=== PATIENT | female | born 1945 ===

== ENCOUNTER 2022-03-29 06:06 | Outpatient (REF) | payer MEDICARE, SELFPAY ==
[2022-03-29 11:13] LABS: MANUAL DIFF FLAG NO
[2022-03-29 11:24] LABS: Appearance Urine HAZY; Basophils Percent Auto 0.4 % (0-2); Color Urine STRAW; Eosinophils Absolute Auto 0.1 X10*3/uL (0.0-0.4); Eosinophils Percent Auto 1.1 % (0-4); Glucose Urine UA NEG (NEG); Hematocrit 41.5 % (37.0-47.0); Hemoglobin 13.5 g/dl (12.0-16.0); Imm Gran Abs Auto 0.02 X10*3/uL (0.00-0.03); Imm Gran Pct Auto 0.3 % (0.0-0.4); Leukocyte Esterase Urine 1+ (NEG); Lymphocytes Absolute Auto 1.8 X10*3/uL (1.2-4.9); Lymphocytes Percent Auto 25.3 % (20-40); Mean Corpuscular HGB Conc 32.5 g/dl (31.0-35.0); Mean Corpuscular Hemoglobin 28.8 pg (27.0-33.0); Mean Corpuscular Volume 88.5 fL (80.0-98.0); Mean Platelet Volume 10.4 fL (9.4-12.3); Monocytes Absolute Auto 0.7 X10*3/uL (0.1-1.2); Monocytes Percent Auto 10.5 % (2-11); Neutrophils Absolute Auto 4.4 x10*3/uL (2.0-8.3); Neutrophils Percent Auto 62.4 % (45-73); Nitrite Urine NEG (NEG); PH 5.5 (5.0-8.0); Platelet Count 283 X10*3/uL (160-400); Red Blood Count 4.69 X10*6/uL (4.20-5.50); Red Cell Distribution Width 14.1 % (11.0-16.0); Specific Gravity - Urine <= 1.005 (1.005-1.025); UACC Culture Trigger YES; Urine Blood NEG (NEG); Urine Ketones NEG (NEG); Urine Protein NEG (NEG-TRACE)
[2022-03-29 11:33] LABS: Bacteria Urine TRACE /LPF; RBC Urine 0-2 /HPF (0); Squamous Epithelial Cell Urine 2+ /LPF
[2022-03-29 11:38] LABS: Alanine Aminotransferase 13 U/L (0-31); Albumin Level 4.8 g/dL (3.5-5.0); Alkaline Phosphatase 64 U/L (39-117); Anion Gap 14 (12-20); Aspartate Amino Transferase 20 U/L (5-31); Blood Urea Nitrogen 15 mg/dL (9-16); Calcium 9.7 mg/dL (8.4-10.2); Carbon Dioxide 27 mmol/L (22-29); Chloride 101 mmol/L (96-108); Cholesterol 306 mg/dL; Estimated Glomerular Filt Rate > 60; Glucose Fasting 102 mg/dL (60-99); HDL Cholesterol 87 mg/dL; LDL Cholesterol Calculated 201 mg/dl; Potassium 4.4 mmol/L (3.3-5.1); Sodium 138 mmol/L (135-145); Total Protein 7.3 g/dL (6.5-8.0); Triglycerides 94 mg/dL
[2022-03-29 11:57] LABS: Vitamin B12 320 pg/mL (200-900)
[2022-03-29 11:59] LABS: TSH reflex Free T4 1.12 uIU/mL (0.32-4.0)
[2022-04-03 13:46] LABS: Vitamin D 25-OH, D2 <4 ng/mL; Vitamin D 25-OH, D3 31 ng/mL; Vitamin D 25-OH, Total 31 ng/mL (30-100)
== END 2022-03-29 06:07 | disposition home or self-care (01) ==
LOC: HO.HMGCLDS 06:06
PROVIDERS: PCP Internal Medicine; Visit Provider Internal Medicine
DX: Z00.01 Encounter for general adult medical examination with abnormal findings (principal); K58.2 Mixed irritable bowel syndrome; K64.4 Residual hemorrhoidal skin tags; L30.9 Dermatitis, unspecified; M40.209 Unspecified kyphosis, site unspecified; R03.0 Elevated blood-pressure reading, without diagnosis of hypertension; F17.200 Nicotine dependence, unspecified, uncomplicated; Z78.0 Asymptomatic menopausal state
CPT/HCPCS: 36415; 80053; 80061; 81001; 82306; 82607; 84443; 85025; 87086

== ENCOUNTER 2022-04-27 10:05 | Outpatient (REF) | payer MEDICARE, SELFPAY ==
--- NOTE | ~2022-04-27 | MM_ITS ---
EXAMINATION: BONE DENSITOMETRY CLINICAL INDICATION: Asymptomatic menopausal state. COMPARISON: Baseline BD dated 10/27/2015. TECHNIQUE: Using a [employer] DXA System (software version: 13.1) manufactured by [employer], dual-energy x-ray absorptiometry was performed of the lumbar spine and left hip. The images are of good technical quality. Summary results are attached. FINDINGS: AP SPINE L1-L4 (excluding L3): The data of L1-L4 has been changed to exclude the L3 vertebral body, because the superior endplate compression at this level may cause overestimation of lumbar spine density. Current: BMD 0.781 g/cm2, Z-score -0.9, T-score -3.2, osteoporosis, 3.0% increase from baseline (<5% change is not significant). Baseline: BMD 0.758 g/cm2. LEFT FEMUR, NECK: Current: BMD 0.680 g/cm2, Z-score -0.2, T-score -2.6, osteoporosis. Baseline: BMD 0.652 g/cm2. LEFT FEMUR, TOTAL: Current: BMD 0.714 g/cm2, Z-score -0.1, T-score -2.3, osteopenia, 0.1% increase from baseline (<5% change is not significant). Baseline: BMD 0.713 g/cm2. IDENTIFIED RISK FACTORS: Early menopause, height loss, history of fracture (adult), hysterectomy, left oophorectomy, tobacco use (current smoker), secondary osteoporosis. HISTORY OF FRACTURE: Spine. MEDICATIONS: Vitamin D. MM/XR DEXA axial skeleton IMPRESSION: 1. DIAGNOSIS: Osteoporosis based on the lowest T-score value of -3.2 in the lumbar spine applying World Health Organization criteria. 2. 10-YEAR FRACTURE RISK PREDICTION, FRAX: According to the guidelines, FRAX calculation should only be performed on patients in the osteopenia bone density category. Therefore, FRAX was not performed on this patient. 3. Treatment Recommendations: NOF guidelines recommend consideration for treatment in postmenopausal women and men age 50 and older presenting with the following: -A hip or vertebral (clinical or morphometric) fracture. -T-score less than or equal to -2.5 at the femoral neck or spine after appropriate evaluation to exclude secondary causes. -Low bone mass at the hip or spine and a 10-year fracture probability by FRAX of greater than or equal to 3% for hip fracture or greater than or equal to 20% for major osteoporotic fracture based on the [place] adapted WHO algorithm. 4. Other Recommendations: All treatment decisions require clinical judgment and consideration of individual patient factors, including patient preferences, comorbidities, previous drug use, risk factors not captured in the FRAX model (e.g. frailty, falls, vitamin D deficiency, increased bone turnover, interval significant decline in bone density) and possible under or overestimation of fracture risk by FRAX. Additional medical evaluation for secondary cause of low bone mineral density may be appropriate. FUTURE SCAN RECOMMENDATION: People with diagnosed cases of osteoporosis or at high risk for fracture should have regular bone mineral density tests. For patients eligible for Medicare, routine testing is allowed once every 2 years. The testing frequency can be increased to one year for patients who have rapidly progressing disease, those who are receiving or discontinuing medical therapy to restore bone mass, or have additional risk factors.
== END 2022-04-27 10:06 | disposition home or self-care (01) ==
LOC: HO.MAMMO 10:05
PROVIDERS: PCP Internal Medicine; Visit Provider Internal Medicine
DX: Z13.820 Encounter for screening for osteoporosis (principal); Z78.0 Asymptomatic menopausal state
CPT/HCPCS: 77080

== ENCOUNTER → 2022-05-22 10:34 | Outpatient (BNVA) | payer MEDICARE, SELFPAY | PROVIDERS: PCP Internal Medicine; Visit Provider Internal Medicine Endocrinology, Diabetes & Metabolism | DX: M81.0 Age-related osteoporosis without current pathological fracture (principal) | CPT/HCPCS: 99202 ==

== ENCOUNTER 2022-05-24 06:00 | Outpatient (REF) | payer MEDICARE, SELFPAY ==
[2022-05-24 08:18] LABS: Phosphorus 3.8 mg/dL (2.7-4.5)
[2022-05-24 09:42] LABS: Total Volume 24 Hour Urine 1550 mL
[2022-05-24 10:15] LABS: Creatinine, 24Hr Urine 0.7 G/Day (1.0-2.0); Creatinine, mg/dL 44.35
[2022-05-25 16:52] LABS: Calcium, 24 Hr Urine 59 mg/24 h; Calcium/Creatinine Ratio 84 mg/g creat (30-275)
[2022-05-29 00:32] LABS: Prot Elec - Albumin 4.5 g/dL (3.8-4.8); Prot Elec - Alpha1 0.3 g/dL (0.2-0.3); Prot Elec - Alpha2 0.8 g/dL (0.5-0.9); Prot Elec - Beta 1 0.4 g/dL (0.4-0.6); Prot Elec - Beta 2 0.3 g/dL (0.2-0.5); Prot Elec - Gamma 0.7 g/dL (0.8-1.7); Prot Elec - Total Protein 6.9 g/dL (6.1-8.1)
== END 2022-05-24 06:01 | disposition home or self-care (01) ==
LOC: HO.LAB 06:00
PROVIDERS: PCP Internal Medicine; Visit Provider Internal Medicine Endocrinology, Diabetes & Metabolism
DX: M81.0 Age-related osteoporosis without current pathological fracture (principal)
CPT/HCPCS: 82340; 82570; 84100; 84165

== ENCOUNTER 2022-05-29 10:47 | Outpatient (REF) | payer MEDICARE, SELFPAY | END 2022-05-29 10:48 | disposition home or self-care (01) | LOC: HO.LAB 10:47 | PROVIDERS: PCP Internal Medicine; Visit Provider Internal Medicine Endocrinology, Diabetes & Metabolism | DX: M81.0 Age-related osteoporosis without current pathological fracture (principal) | CPT/HCPCS: 86335 ==

== ENCOUNTER 2022-06-22 08:00 | Outpatient (RCR) | payer MEDICARE, SELFPAY ==
--- NOTE | 2022-05-29 08:58 | MHC.PT.EP ---
[facility] [place] Office [place] Office [place] Office [address] [phone] F: [phone] F: [phone] F: [phone] F: [phone] Physical Therapy Plan of Care Date of Evaluation: Date of Surgery: none Diagnosis: Pain in the R and L shoulder. Assessment: Patient is a 76 year old R handed female who presents with s/s consistent with b/l shoulder pain. She does not work but likes to stay active around the house and in the community. Patient past medical history is unremarkable. Current impairments include pain, posture, ROM, strength, activity tolerance and functional mobility. Functional limitations include decreased ability to perform activities that requires reaching or overhead activities. Patient is motivated with good rehab potential. Skilled PT will address impairments and functional limitations in order to achieve goals. Frequency and Duration: The patient will be seen 2x/week for 5 weeks Short Term Goals: I with HEP -2 weeks ER AROM b/l 60 - 3 weeks Strength 4/5 grossly - 3 weeks Alf Goals: AROM full and pain free - 5 weeks Pain free ADLs - 5 weeks Able to perform 5 minutes of overhead activities without increased pain - 5 weeks Treatment Plan: Modalities to reduce pain, spasms and effusion. Manual therapy to restore motion and function. Therapeutic exercise to improve strength and flexibility. Neuromuscular re-education for posture and balance. Therapeutic activities to return to functional activities of daily living. Electronically signed by: Keshawn Wright PT Please sign and return to therapist. Thank you for your referral.
--- NOTE | 2022-08-08 10:49 | MHC.PT.DC ---
[facility] [place] Office [place] Office [place] Office [address] Andrew Hough [address] [phone] F: [phone] F: [phone] F: [phone] F: [phone] Physical Therapy Discharge Report Diagnosis: Pain in the R and L shoulder. Date of Surgery: none Date of Evaluation: 05/29/22 Date of Discharge: 08/08/22 Treatments to Date: 6 Cancellations to Date: No Shows to Date: Discharge Status: Improved Function Independent with HEP Discharge Summary: Pt elected to continue exclusively with HEP at this time. 06/22/22: pt progressing with skilled PT. R shoulder has been feeling improved overall with less pain with near full AROM. 06/15/22: requires cues to reduce LS/UT compensation. Overall less shoulder and neck discomfort. we will progress as tolerated. 06/12/22: pt responded well after last visit. we did add cuff strength and rows without adverse reactions today. continue to progress as tolerated. 06/08/22: pt progressing well on symptoms. still with limited activity tolerance and weakness in b/l UEs. 06/06/22: pt has been progressing well on HEP since eval. notes discomfort has resolved about 50%. we will continue to address impairments and limitations Patient is a 76 year old R handed female who presents with s/s consistent with b/l shoulder pain. She does not work but likes to stay active around the house and in the community. Patient past medical history is unremarkable. Current impairments include pain, posture, ROM, strength, activity tolerance and functional mobility. Functional limitations include decreased ability to perform activities that requires reaching or overhead activities. Patient is motivated with good rehab potential. Skilled PT will address impairments and functional limitations in order to achieve goals. Electronically signed by: Keshawn Wright, PT Please sign and return to therapist. Thank you for your referral.
== END 2022-08-08 10:50 | disposition home or self-care (01) ==
LOC: HO.PTCHIC 08:00
PROVIDERS: PCP Internal Medicine; Visit Provider Internal Medicine
DX: M25.511 Pain in right shoulder (principal); M25.512 Pain in left shoulder
CPT/HCPCS: 97110; 97140; 97162

== ENCOUNTER 2022-07-30 06:02 | Outpatient (REF) | payer MEDICARE, SELFPAY ==
[2022-07-30 11:46] LABS: Estimated Average Glucose 128 mg/dL; Hemoglobin A1C 148.7139 umol/L; Hemoglobin A1c % 6.1 %
[2022-07-30 11:58] LABS: Alanine Aminotransferase 24 U/L (0-31); Albumin Level 4.8 g/dL (3.5-5.0); Alkaline Phosphatase 76 U/L (39-117); Anion Gap 14 (12-20); Aspartate Amino Transferase 23 U/L (5-31); Bilirubin Total 0.8 mg/dL (0.0-1.0); Blood Urea Nitrogen 25 mg/dL (9-16); Calcium 9.8 mg/dL (8.4-10.2); Carbon Dioxide 29 mmol/L (22-29); Chloride 102 mmol/L (96-108); Cholesterol 267 mg/dL; Estimated Glomerular Filt Rate > 60; Glucose Fasting 112 mg/dL (60-99); HDL Cholesterol 93 mg/dL; LDL Cholesterol Calculated 153 mg/dl; Potassium 4.5 mmol/L (3.3-5.1); Sodium 140 mmol/L (135-145); Total Protein 7.1 g/dL (6.5-8.0); Triglycerides 105 mg/dL
== END 2022-07-30 06:03 | disposition home or self-care (01) ==
LOC: HO.HMGCLDS 06:02
PROVIDERS: PCP Internal Medicine; Visit Provider Internal Medicine
DX: E78.9 Disorder of lipoprotein metabolism, unspecified (principal); R73.03 Prediabetes; R03.0 Elevated blood-pressure reading, without diagnosis of hypertension; K64.4 Residual hemorrhoidal skin tags; K58.2 Mixed irritable bowel syndrome; F17.200 Nicotine dependence, unspecified, uncomplicated
CPT/HCPCS: 36415; 80053; 80061; 83036

== ENCOUNTER 2022-08-02 09:11 | Outpatient (REF) | payer MEDICARE, SELFPAY ==
[2022-08-02 11:38] LABS: Appearance Urine Clear; Color Urine Yellow; Glucose Urine UA Negative (Negative); Leukocyte Esterase Urine Trace (Negative); Nitrite Urine Negative (Negative); PH 5.5 (5.0-9.0); UMIC TRIGGER UACC YES; Urine Blood Negative (Negative); Urine Ketones Negative (Negative); Urine Protein Negative (Neg-Trace)
[2022-08-02 11:44] LABS: Bacteria Urine None Seen (None Seen); Hyaline Casts Urine 0-2 /LPF (0-2); RBC Urine 0-2 /HPF (0-2); Squamous Epithelial Cell Urine 0-2 /HPF (0-2); WBC Urine 0-5 /HPF (0-5)
== END 2022-08-02 09:12 | disposition home or self-care (01) ==
LOC: HO.HMGCLDS 09:11
PROVIDERS: PCP Internal Medicine; Visit Provider Internal Medicine
DX: R35.0 Frequency of micturition (principal)
CPT/HCPCS: 81001

== ENCOUNTER 2022-09-12 08:52 | Outpatient (REF) | payer MEDICARE, SELFPAY ==
--- NOTE | ~2022-09-12 | XR_ITS ---
EXAMINATION: XR HIP, RIGHT CLINICAL INFORMATION: Right hip osteoarthritis COMPARISON: 11/03/2014 pelvis TECHNIQUE: Single view pelvis and Two views of the right hip. FINDINGS: Mild degenerative changes are present in both hips, left greater than right. Findings are unchanged when compared to 11/03/2014. There is supra acetabular sclerosis and some mild osteophyte formation. No fractures. XR/XR hip RT w PEL1V IMPRESSION: Mild degenerative changes both hips, left greater than right stable when compared to 2014.
== END 2022-09-12 08:53 | disposition home or self-care (01) ==
LOC: HO.HMGCX 08:52
PROVIDERS: PCP Internal Medicine; Visit Provider Internal Medicine
DX: M16.11 Unilateral primary osteoarthritis, right hip (principal)
CPT/HCPCS: 73502

== ENCOUNTER 2022-09-19 09:00 | Outpatient (REF) | payer MEDICARE, SELFPAY ==
[2022-09-19 12:26] LABS: Vitamin B12 838 pg/mL (200-900)
[2022-09-19 12:33] LABS: Ferritin 112 ng/mL (10-250)
== END 2022-09-19 09:01 | disposition home or self-care (01) ==
LOC: HO.HMGCLDS 09:00
PROVIDERS: PCP Internal Medicine; Visit Provider Internal Medicine
DX: R53.83 Other fatigue (principal)
CPT/HCPCS: 36415; 82607; 82728

== ENCOUNTER 2022-10-25 14:53 | Outpatient (REF) | payer MEDICARE, SELFPAY ==
[2022-10-25 17:26] LABS: TSH reflex Free T4 1.03 uIU/mL (0.32-4.0)
== END 2022-10-25 14:54 | disposition home or self-care (01) ==
LOC: HO.HMGCLDS 14:53
PROVIDERS: PCP Internal Medicine; Visit Provider Internal Medicine
DX: L65.9 Nonscarring hair loss, unspecified (principal)
CPT/HCPCS: 36415; 84443

== ENCOUNTER 2022-12-24 06:07 | Outpatient (REF) | payer MEDICARE, SELFPAY ==
[2022-12-24 12:47] LABS: Estimated Average Glucose 123 mg/dL; Hemoglobin A1C 148.9475 umol/L; Hemoglobin A1c % 5.9 %
[2022-12-24 13:08] LABS: Alanine Aminotransferase 18 U/L (0-31); Albumin Level 4.4 g/dL (3.5-5.0); Alkaline Phosphatase 64 U/L (39-117); Anion Gap 16 (12-20); Aspartate Amino Transferase 19 U/L (5-31); Bilirubin Total 0.8 mg/dL (0.0-1.0); Blood Urea Nitrogen 24 mg/dL (9-16); Calcium 9.7 mg/dL (8.4-10.2); Carbon Dioxide 26 mmol/L (22-29); Chloride 104 mmol/L (96-108); Cholesterol 258 mg/dL; Estimated Glomerular Filt Rate 56; Glucose Fasting 107 mg/dL (60-99); HDL Cholesterol 80 mg/dL; LDL Cholesterol Calculated 162 mg/dl; Potassium 4.9 mmol/L (3.3-5.1); Sodium 141 mmol/L (135-145); Total Protein 6.8 g/dL (6.5-8.0); Triglycerides 80 mg/dL
== END 2022-12-24 06:08 | disposition home or self-care (01) ==
LOC: HO.HMGCLDS 06:07
PROVIDERS: PCP Internal Medicine; Visit Provider Internal Medicine
DX: E78.9 Disorder of lipoprotein metabolism, unspecified (principal); F17.200 Nicotine dependence, unspecified, uncomplicated; F41.1 Generalized anxiety disorder; K64.4 Residual hemorrhoidal skin tags; M81.0 Age-related osteoporosis without current pathological fracture; R73.03 Prediabetes
CPT/HCPCS: 36415; 80053; 80061; 83036

== ENCOUNTER 2023-02-27 09:17 | Outpatient (REF) | payer MEDICARE, SELFPAY | END 2023-02-27 09:18 | disposition home or self-care (01) | LOC: HO.LAB 09:17 | PROVIDERS: Visit Provider Nurse Practitioner Family | DX: Z13.89 Encounter for screening for other disorder (principal) ==

== ENCOUNTER 2023-03-21 13:00 | Outpatient (AMB) | payer MEDICARE, SELFPAY ==
--- NOTE | 2023-03-21 07:00 | A.OFFVIS_ITS ---
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 ?03/21/2023? She states that she saw a new health care provider several months ago, who sugge sted some life style modifications by cutting red meat, and cutting back on sugar diet. She states that upon dietary modifications, she developed significant hair loss and also had some urinary symptoms including urinary frequency and dysuria.? She was seen by her PCP and she was told that she had urinary tract infections. She was treated with antibiotics which caused a yeast infection in rectal area, which was treated with anti fungal. She notes that she developed irritating voiding symptoms again. She states that she added acidophilus to her diet and notes that her urinary symptoms have resolved currently.? She has a comorbidities of nicotine dependence. She is smoking since the age of 15. She states that she smokes a pack daily. She denies hematuria and urine incontinence. Patient has had hysterectomy, and one ovary was removed at the age of 27.? She also had appendectomy at the time of hysterectomy. She denies any pregnancies. Evaluation today ? Leukocytes: negative; blood: negative. I discussed further evaluation with renal and bladder US. Plan: Ordered renal and bladder ultrasound. I discussed with the patient that nicotine is a risk factor for some urinary tract cancers. Follow-up in 2 months consider cysto at that time [facility] Surgical History History of hysterectomy Family History Mother High cholesterol Father No problems noted. Social History Housing: House Patient Tobacco Use Status: Current everyday Tobacco user Cigarettes Per Day: 12 e-Cigarette/Vaping Use: Never Used service: No Current occupational status: retired Cognitive needs: No Hearing needs: No Vision needs: No Review of Systems Const All systems reviewed & are unremarkable except as noted in HPI and below Reports no additional complaints Eyes Reports no additional complaints ENT Reports no additional complaints Card Denies dyspnea Resp Denies cough and Denies dyspnea GI Reports no additional complaints Reports no additional complaints Musc Reports no additional complaints Skin/Breast Denies rash and Denies unusual bruising Neuro Reports no additional complaints Psych Reports no additional complaints Endo Reports no additional complaints Godwin/Lymph Reports no additional complaints Aller/Immun Reports no additional complaints Physical Exam Const General: cooperative, healthy appearing and no acute distress Orientation/consciousness: patient oriented x3 HEENT Head: Yes normal to inspection, Yes normocephalic and Yes atraumatic Eyes Conjunctivae: conjunctivae normal Neck Neck: Yes normal visual inspection and Yes trachea midline Chest Chest palpation & inspection: normal inspection of the chest Resp Effort & Inspection: normal respiratory effort Cardio Rate: regular rate GI Inspection: Yes normal to inspection Skin General skin exam: no rashes or lesions noted Neuro General: patient oriented x3 Extrem General: No edema Psych Appearance: grossly normal Results AMB Urinalysis, Automated UA Leukoctes 0 Kellee/uL Last Edit by KRISTYN Thomson on 03/21/23 13:29 UA Nitrite Negative Last Edit by KRITSYN Thomson on 03/21/23 13:29 UA Urobilinogen 0.2 mg/dL Last Edit by KRISTYN Thomson on 03/21/23 13:2 9 UA Protein 0 mg/dL Last Edit by KRISTYN Thomson on 03/21/23 13:29 UA pH 6.0 Last Edit by KRISTYN Thomson on 03/21/23 13:29 UA Blood 0 Alexander/uL Last Edit by KRISTYN Thomson on 03/21/23 13:29 UA Specific [place] 1.015 Last Edit by KRISTYN Thomson on 03/21/23 13: 29 UA Ketone Negative Last Edit by KRISTYN Thomson on 03/21/23 13:29 UA Bilirubin 0 mg/dL Last Edit by KRISTYN Thomson on 03/21/23 13:29 UA Glucose 0 mg/dL Last Edit by KRISTYN Thomson on 03/21/23 13:29 Results Reviewed Results Reviewed: Laboratory Last Values Urine pH (Auto) 6.0 03/21/23 13:14 Specific [place] (Auto) 1.015 03/21/23 13:14 Urine Protein (Auto) 0 mg/dL 03/21/23 13:14 Glucose (UA)(Auto) 0 mg/dL 03/21/23 13:14 Urine Ketones (Auto) Negative 03/21/23 13:14 Urine Blood (Auto) 0 Alexander/uL 03/21/23 13:14 Urine Nitrite (Auto) Negative 03/21/23 13:14 Urine Bilirubin (Auto) 0 mg/dL 03/21/23 13:14 Urine Urobilinogen (Auto) 0.2 mg/dL 03/21/23 13:14 Leukocyte Esterase (Auto) 0 Kellee/uL 03/21/23 13:14 Assessment & Plan Assessment & Plan (1) Dysuria: Code(s): R30.0 - Dysuria (2) Urinary frequency: Code(s): R35.0 - Frequency of micturition (3) UTI (urinary tract infection): Code(s): N39.0 - Urinary tract infection, site not specified Plan Ordered renal and bladder ultrasound. I discussed with the patient that nicotine is a risk factor for some urinary tract cancers. Follow-up in 2 months consider cysto at that time Orders: Orders AMB Urinalysis Automated 03/21/23 Z13.9 - Encounter for screening, unspecified AMB Post Void Residual by ultrasound 03/21/23 N39.8 - Other specified disorders of urinary system Patient Instructions: The patient had an opportunity to ask questions regarding treatment plan. All questions were answered. Imaging, Laboratory studies and physical exam results were discussed and reviewed in detail. No major barriers to understanding were identified. The patient expressed understanding and agreement with the above treatment plan.? ? ? The patient is aware they should contact our office by phone for worsening of their current condition or the appearance of new symptoms. Compliance is encouraged with any medications and followup testing that is ordered.? ? ? It is a privilege to be allowed the opportunity to participate in the urologic care of your patient. If you have any questions or concerns regarding treatment for the above conditions please do not hesitate to contact me. The office telephone contact is [phone].? ? ? This note is constructed in part using voice recognition software. While every effort has been made to ensure accuracy ged preparation teacher errors may have been included.? ? ? Yours sincerely,? ? ? Sushant Denise MD? ? Coding Level of Care Code New Pt Level 4 (34035) Diagnoses Dysuria R30.0 Urinary frequency R35.0 UTI (urinary tract infection) N39.0
== END 2023-03-21 13:59 | disposition home or self-care (01) ==
PROVIDERS: PCP Internal Medicine; Visit Provider Urology
DX: R30.0 Dysuria (principal); R35.0 Frequency of micturition; N39.0 Urinary tract infection, site not specified
CPT/HCPCS: 99204

== ENCOUNTER → 2023-03-21 13:00 | Outpatient (BNVA) | payer MEDICARE, SELFPAY | PROVIDERS: PCP Internal Medicine; Visit Provider Urology | DX: R30.0 Dysuria (principal); R35.0 Frequency of micturition; N39.0 Urinary tract infection, site not specified | CPT/HCPCS: 99202 ==

== ENCOUNTER 2023-05-03 08:18 | Outpatient (REF) | payer MEDICARE, SELFPAY ==
--- NOTE | ~2023-05-03 | US_ITS ---
EXAMINATION: US RETROPERITONEAL COMPLETE (RENAL) CLINICAL INFORMATION: Urinary tract infection, site not specified. COMPARISON: None available. TECHNIQUE: Real-time imaging of the kidneys and bladder. FINDINGS: RIGHT KIDNEY: 8.8 x 3.4 x 6.2 cm (SAG x AP x TRV). The kidney is normal in size, contour, and echogenicity. Renal cortical thickness is normal. No renal calculi or hydronephrosis. At the interpolar aspect, an 8 mm benign, simple cyst is seen. At the lower pole, a 5.7 cm benign, simple cyst is seen. These require no imaging follow-up. At the lower pole, a 5.2 x 3.6 x 5.3 cm mildly complex cyst is seen, with fine septation. This shows no mural nodularity, and there is mild color Doppler flow noted of the septation. LEFT KIDNEY: 10.7 x 4.6 x 4.5 cm (SAG x AP x TRV). The kidney is normal in size, contour, and echogenicity. Renal cortical thickness is normal. No calculi or focal parenchymal lesions. No hydronephrosis. BLADDER: Well distended and normal. Bilateral ureteral jets are demonstrated. Prevoid bladder volume is 183 mL. Postvoid bladder volume is 18 mL. US/US retroperitoneal comp IMPRESSION: 1. No renal mass, calculus or obstruction is seen. 2. A 5. 3 cm in maximal diameter mildly complex right renal cyst is seen, with fine septation. If relevant to patient management, this can be further evaluated with dedicated CT or MRI (contrast-enhanced; renal mass protocol).
== END 2023-05-03 08:19 | disposition home or self-care (01) ==
LOC: HO.HMGCX 08:18
PROVIDERS: PCP Internal Medicine; Visit Provider Urology
DX: N39.0 Urinary tract infection, site not specified (principal); R35.0 Frequency of micturition; R30.0 Dysuria
CPT/HCPCS: 76770

== ENCOUNTER 2023-05-22 08:48 | Outpatient (AMB) | payer MEDICARE, SELFPAY ==
--- NOTE | 2023-05-22 08:53 | A.OFFVIS_ITS ---
Intake Intake Visit Reasons: 2m/US Intake Note: Patient presents today for a follow-up Recurrent UTI's: US Completed on 05/03/2023. Meds- None Allergies to Antibiotic- Sulfonamide Blood Thinner- None Patient Symptoms: None Plant Controller Required: No Accompanied by: Self / Same As Patient Allergies Sulfa (Sulfonamide Antibiotics) Allergy (Unknown, Verified 02/27/23 09:19) Unknown HPI HPI Comments History of Present Illness Details Vy is a 77-year-old female who presents today to the office for a follow-up. 05/22/2023? She is followed today for US. She was last seen by me on 03/21/2023 for urinary tract infections. Ordered renal and bladder ultrasound during that time. Patient was educated that nicotine is a risk factor for some urinary tract cancers, and she was advised to follow-up in 2 months to consider cysto at that time. I reviewed the retroperitoneum US results from 05/03/2023 revealed no renal mass, calculus or obstruction is seen.? A 5. 3 cm in maximal diameter mildly complex right renal cyst is seen, with fine septation. BLADDER: Well distended and normal. Bilateral ureteral jets are demonstrated. Prevoid bladder volume is 183 mL. Postvoid bladder volume is 18 mL. I reviewed the urine culture results from 04/18/2023 which came back < 10,000 cfu/ml. She denies any other urinary symptoms today in the office today. I will hold on cystoscopy at this time. Discussed further evaluation of septated renal cyst. 05/22/2023: Evaluation today?UA? leukocy chivo: 15 Kellee; blood: 10 Alexander. Review of charts: Last visit: 03/21/2023? She states that she saw a new health care provider several months ago, who suggested some life style modifications by cutting red meat, and cutting back on sugar diet. She states that upon dietary modifications, she developed significant hair loss and also had some urinary symptoms including urinary frequency and dysuria.? She was seen by her PCP and she was told that she had urinary tract infections. She was treated with antibiotics which caused a yeast infection in rectal area, which was treated with anti fungal. She notes that she developed irritating voiding symptoms again. She states that she added acidophilus to her diet and notes that her urinary symptoms have resolved currently.? She has a comorbidities of nicotine dependence. She is smoking since the age of 15. She states that she smokes a pack daily. She denies hematuria and urine incontinence. Patient has had hysterectomy, and one ovary was removed at the age of 27.? She also had appendectomy at the time of hysterectomy. She denies any pregnancies. Evaluation today ? Leukocytes: negative; blood: negative. 05/22/2023: Plan: CAT scan of the abdomen, renal mass protocol. Will continue to monitor urine. Tele-health follow-up in 8 weeks to discuss the CT results. Follow-up in 1 year. [facility] Surgical History History of hysterectomy Family History Mother High cholesterol Father No problems noted. Social History Housing: House Patient Tobacco Use Status: Current everyday Tobacco user Cigarettes Per Day: 12 e-Cigarette/Vaping Use: Never Used service: No Current occupational status: retired Cognitive needs: No Hearing needs: No Vision needs: No Review of Systems Const All systems reviewed & are unremarkable except as noted in HPI and below Reports no additional complaints Eyes Reports no additional complaints ENT Reports no additional complaints Card Denies dyspnea Resp Denies cough and Denies dyspnea GI Reports no additional complaints Reports no additional complaints Musc Reports no additional complaints Skin/Breast Denies rash and Denies unusual bruising Neuro Reports no additional complaints Psych Reports no additional complaints Endo Reports no additional complaints Godwin/Lymph Reports no additional complaints Aller/Immun Reports no additional complaints Physical Exam Const General: cooperative, healthy appearing and no acute distress Orientation/consciousness: patient oriented x3 HEENT Head: Yes normal to inspection, Yes normocephalic and Yes atraumatic Eyes Conjunctivae: conjunctivae normal Neck Neck: Yes normal visual inspection and Yes trachea midline Chest Chest palpation & inspection: normal inspection of the chest Resp Effort & Inspection: normal respiratory effort Cardio Rate: regular rate GI Inspection: Yes normal to inspection Skin General skin exam: no rashes or lesions noted Neuro General: patient oriented x3 Extrem General: No edema Psych Appearance: grossly normal Results AMB Urinalysis, Automated UA Leukoctes 15 Kellee/uL Last Edit by Pipo Quintanilla Maurilio on 05/22/23 09:06 UA Nitrite Negative Last Edit by Pipo Quintanilla Maurilio on 05/22/23 09:06 UA Urobilinogen 0.2 mg/dL Last Edit by Pipo Quintanilla [facility] on 05/22/23 09:0 6 UA Protein 0 mg/dL Last Edit by Pipo Quintanilla [facility] on 05/22/23 09:06 UA pH 6.0 Last Edit by Pipo Quintanilla [facility] on 05/22/23 09:06 UA Blood 10 Alexander/uL Last Edit by Pipo Quintanilla [facility] on 05/22/23 09:06 UA Specific [place] 1.020 Last Edit by Pipo Quintanilla [facility] on 05/22/23 09: 06 UA Ketone Negative Last Edit by Pipo Quintanilla Maurilio on 05/22/23 09:06 UA Bilirubin 0 mg/dL Last Edit by Pipo Quintanilla [facility] on 05/22/23 09:06 UA Glucose 0 mg/dL Last Edit by Pipo Quintanilla [facility] on 05/22/23 09:06 Results Reviewed Results Reviewed: Laboratory Last Values Urine pH (Auto) 6.0 05/22/23 09:01 Specific [place] (Auto) 1.020 05/22/23 09:01 Urine Protein (Auto) 0 mg/dL 05/22/23 09:01 Glucose (UA)(Auto) 0 mg/dL 05/22/23 09:01 Urine Ketones (Auto) Negative 05/22/23 09:01 Urine Blood (Auto) 10 Alexander/uL 05/22/23 09:01 Urine Nitrite (Auto) Negative 05/22/23 09:01 Urine Bilirubin (Auto) 0 mg/dL 05/22/23 09:01 Urine Urobilinogen (Auto) 0.2 mg/dL 05/22/23 09:01 Leukocyte Esterase (Auto) 15 Kellee/uL 05/22/23 09:01 Date of Service: 05/03/23 EXAMINATION:? US RETROPERITONEAL COMPLETE (RENAL) CLINICAL INFORMATION: Urinary tract infection, site not specified. COMPARISON:? None available. FINDINGS: RIGHT KIDNEY: 8.8 x 3.4 x 6.2 cm (SAG x AP x TRV). The kidney is normal in size, contour, and echogenicity. Renal cortical thickness is normal. No renal calculi or hydronephrosis.? At the interpolar aspect, an 8 mm benign, simple cyst is seen. At the lower pole, a 5.7 cm benign, simple cyst is seen. These require no imaging follow-up. At the lower pole, a 5.2 x 3.6 x 5.3 cm mildly complex cyst is seen, with fine septation. This shows no mural nodularity, and there is mild color Doppler flow noted of the septation. LEFT KIDNEY: 10.7 x 4.6 x 4.5 cm (SAG x AP x TRV). The kidney is normal in size, contour, and echogenicity. Renal cortical thickness is normal. No calculi or focal parenchymal lesions. No hydronephrosis. BLADDER: Well distended and normal. Bilateral ureteral jets are demonstrated. Prevoid bladder volume is 183 mL. Postvoid bladder volume is 18 mL. IMPRESSION:? 1. No renal mass, calculus or obstruction is seen. 2. A 5. 3 cm in maximal diameter mildly complex right renal cyst is seen, with fine septation. If relevant to patient management, this can be further evaluated with dedicated CT or MRI (contrast-enhanced; renal mass protocol) Ordered:? Urine Culture? Procedure?Result?Verified?Site ? Urine Culture? Final?03/30/22 ? Report Result?< 10,000 cfu/ml Assessment & Plan Assessment & Plan (1) UTI (urinary tract infection): Code(s): N39.0 - Urinary tract infection, site not specified (2) Nicotine dependence: Code(s): F17.200 - Nicotine dependence, unspecified, uncomplicated (3) Complex renal cyst: Code(s): N28.1 - Cyst of kidney, acquired Plan CAT scan of the abdomen, renal mass protocol.? Will continue to monitor urine. Tele-health follow-up in [address] to [address] results.? Follow-up in 1 year. Orders: Orders AMB Urinalysis Automated Today Z13.9 - Encounter for screening, unspecified Patient Instructions: The patient had an opportunity to ask questions regarding treatment plan. All questions were answered. Imaging, Laboratory studies and physical exam results were discussed and reviewed in detail. No major barriers to understanding were identified. The patient expressed understanding and agreement with the above treatment plan.? ? ? The patient is aware they should contact our office by phone for worsening of their current condition or the appearance of new symptoms. Compliance is encouraged with any medications and followup testing that is ordered.? ? ? It is a privilege to be allowed the opportunity to participate in the urologic care of your patient. If you have any questions or concerns regarding treatment for the above conditions please do not hesitate to contact me. The office telephone contact is [phone].? ? ? This note is constructed in part using voice recognition software. While every effort has been made to ensure accuracy saloon keeper errors may have been included.? ? ? Yours sincerely,? ? ? Sushant Denise MD? Coding Level of Care Code Est Pt Level 4 (41399) Diagnoses UTI (urinary tract infection) N39.0 Nicotine dependence F17.200 Complex renal cyst N28.1
== END 2023-05-22 09:48 | disposition home or self-care (01) ==
PROVIDERS: PCP Internal Medicine; Visit Provider Urology
DX: N39.0 Urinary tract infection, site not specified (principal); F17.200 Nicotine dependence, unspecified, uncomplicated; N28.1 Cyst of kidney, acquired; Z13.9 Encounter for screening, unspecified
CPT/HCPCS: 99214

== ENCOUNTER → 2023-05-22 08:48 | Outpatient (BNVA) | payer MEDICARE, SELFPAY | PROVIDERS: PCP Internal Medicine; Visit Provider Urology | DX: N39.0 Urinary tract infection, site not specified (principal); F17.210 Nicotine dependence, cigarettes, uncomplicated; N28.1 Cyst of kidney, acquired | CPT/HCPCS: 81003; 99212 ==

== ENCOUNTER 2023-10-04 08:16 | Outpatient (AMB) | payer MEDICARE, SELFPAY ==
[2023-10-04 08:19] VITALS: BP 136/80; PULSE 78; TEMP 36.8; O2SAT 97; BMI 18.5
--- NOTE | 2023-10-04 08:19 | MHC.OFFWIV ---
Intake Vital Signs 10/04/23 08:19 Height 5 ft 5 in Weight 111 lb BMI 18.5 BP 136/80 Blood Pressure Location Rt brachial Position Sitting Pulse 78 Pulse Source Pulse Oximeter Temp 98.2 F Temp Source Oral Pulse Oximetry (%) 97 Oxygen Delivery Method Room Air Intake Visit Reasons: EP ? UTI Intake Note: pt is here for c/o possibe uti, patient states shes been having abd discomfort and dysuria for about a week Patient Tobacco Use Status: Current everyday Tobacco user Allergies Sulfa (Sulfonamide Antibiotics) Allergy (Unknown, Verified 10/04/23 08:20) Unknown Do you need a note to return to daycare/school/sports/work: No HPI HPI Comments History of Present Illness Details 78 y/o female presents to walk in clinic with c/o Urinary symptoms associated with lower abdominal pain/cramping for 1 week. Denies fevers, chills, nausea or vomiting. Denies vaginal symptoms. H/o Hysterectomy. [facility] Surgical History History of hysterectomy Family History Mother High cholesterol Father No problems noted. Social History Housing: House Patient Tobacco Use Status: Current everyday Tobacco user Cigarettes Per Day: 12 e-Cigarette/Vaping Use: Never Used service: No Current occupational status: retired Cognitive needs: No Hearing needs: No Vision needs: No Review of Systems Const All systems reviewed & are unremarkable except as noted in HPI and below Physical Exam Vital Signs: Last Vital Signs Temp 98.2 F 10/04/23 08:19 Pulse 78 10/04/23 08:19 BP 136/80 10/04/23 08:19 Pulse Ox 97 10/04/23 08:19 Oxygen Delivery Method Room Air 10/04/23 08:19 BMI result Body Mass Index 18.5 Const General: comfortable and no acute distress GI Inspection: Yes normal to inspection, No Abdominal wall edema and No distended Palpation (GI): Soft to palpation, Tenderness to palpation present (GI) suprapubicly, No hepatosplenomegaly present, no hernias and no masses Auscultation: normal bowel sounds Rectal Exam - Female: deferred OB/external & speculum: Deferred OB/external & speculum exam Results AMB Urinalysis, Automated UA Leukoctes 15 Kellee/uL Last Edit by Hao Romero CMA on 10/04/23 08:34 UA Nitrite Negative Last Edit by Hao Romero CMA on 10/04/23 08:34 UA Urobilinogen 0.2 mg/dL Last Edit by Hao Romero CMA on 10/04/23 08:34 UA Protein 0 mg/dL Last Edit by Hao Roemro CMA on 10/04/23 08:34 UA pH 6.0 Last Edit by Hao Romero CMA on 10/04/23 08:34 UA Blood 0 Alexander/uL Last Edit by Hao Romero CMA on 10/04/23 08:34 UA Specific [place] 1.015 Last Edit by Hao Romero CMA on 10/04/23 08:34 UA Ketone Negative Last Edit by Hao Romero CMA on 10/04/23 08:34 UA Bilirubin 0 mg/dL Last Edit by Hao Romero CMA on 10/04/23 08:34 UA Glucose 0 mg/dL Last Edit by Hao Romero CMA on 10/04/23 08:34 Results Reviewed Results Reviewed: Laboratory Last Values Urine pH (Auto) 6.0 10/04/23 08:34 Specific [place] (Auto) 1.015 10/04/23 08:34 Urine Protein (Auto) 0 mg/dL 10/04/23 08:34 Glucose (UA)(Auto) 0 mg/dL 10/04/23 08:34 Urine Ketones (Auto) Negative 10/04/23 08:34 Urine Blood (Auto) 0 Alexander/uL 10/04/23 08:34 Urine Nitrite (Auto) Negative 10/04/23 08:34 Urine Bilirubin (Auto) 0 mg/dL 10/04/23 08:34 Urine Urobilinogen (Auto) 0.2 mg/dL 10/04/23 08:34 Leukocyte Esterase (Auto) 15 Kellee/uL 10/04/23 08:34 Assessment & Plan Assessment & Plan (1) Urinary tract infection: Code(s): N39.0 - Urinary tract infection, site not specified Qualifiers: Hematuria presence: without hematuria Urinary tract infection type: acute cystitis Qualified Code(s): N30.00 - Acute cystitis without hematuria Plan: - Hydrate with water - Abx prescribed - Rest - Watch for S&S of infection. - Sent Urine for C&S Orders: Orders Urine Culture Today N39.0 - Urinary tract infection, site not specified AMB Urinalysis Automated Today Z13.9 - Encounter for screening, unspecified Medications: New nitrofurantoin monohyd/m-cryst 100 mg (Macrobid) must administer with a meal/food 100 mg PO Q12H 7 days 14 caps 0RF N39.0 - Urinary tract infection, site not specified Coding Level of Care Code Est Pt Level 3 (39349) Diagnoses Acute cystitis without hematuria N30.00 Hematuria presence: without hematuria Urinary tract infection type: acute cystitis Time Spent (min) 15
== END 2023-10-04 09:33 | disposition home or self-care (01) ==
PROVIDERS: PCP Internal Medicine; Visit Provider Nurse Practitioner Family
DX: N30.00 Acute cystitis without hematuria (principal)
CPT/HCPCS: 81003; 99213

== ENCOUNTER 2023-10-04 16:17 | Outpatient (REF) | payer MEDICARE, SELFPAY | END 2023-10-04 16:18 | disposition home or self-care (01) | LOC: HO.HMGCLNP 16:17 | PROVIDERS: Visit Provider Nurse Practitioner Family | DX: N39.0 Urinary tract infection, site not specified (principal) | CPT/HCPCS: 87086 ==

== ENCOUNTER 2023-11-12 08:04 | Outpatient (AMB) | payer MEDICARE, SELFPAY ==
--- NOTE | 2023-11-12 08:28 | AM.OFFWIN_ITS ---
Intake Vital Signs 11/12/23 08:29 Height 5 ft 5 in Weight 112 lb BMI 18.6 BP 126/80 Blood Pressure Location Lt brachial Position Sitting Pulse 99 Pulse Source Pulse Oximeter Temp 98.0 F Temp Source Oral Pulse Oximetry (%) 97 Oxygen Delivery Method Room Air Intake Visit Reasons: EP Burning vagina Intake Note: pt was on antibiotics and started to get a burning in her vagina and was given a cream but this did not help and she has been on probiotic and she says she is still very uncomfortable in this area Patient Tobacco Use Status: Current everyday Tobacco user Allergies Sulfa (Sulfonamide Antibiotics) Allergy (Unknown, Verified 11/12/23 09:23) Unknown Medication List - Last Reconciled 11/12/23 by Britton Dalton MD Bacillus coagulans (Digestive Advantage Probiotics-Prebiotic) cells PO multivitamin 1 tab PO DAILY silver sulfadiazine 1% (Silvadene) 1 appl topical DAILY HPI EP Burning vagina HPI Details 78-year-old female presents to the [facility] for a sick visit. Patient is reporting she is having burning sensation in the vaginal area for the past few weeks. Initially she had a urinary tract and was given an antibiotic. Subsequently she developed burning sensation in the vaginal area. She spoke to the urologist office and was given prescription of clotrimazole. Patient used it once and felt a lot of burning in the area. No difficulty urinating. No vaginal discharge. [facility] Surgical History History of hysterectomy Family History Mother High cholesterol Father No problems noted. Social History Housing: House Patient Tobacco Use Status: Current everyday Tobacco user Cigarettes Per Day: 12 e-Cigarette/Vaping Use: Never Used service: No Current occupational status: retired Cognitive needs: No Hearing needs: No Vision needs: No Physical Exam Vital Signs: Last Vital Signs Temp 98.0 F 11/12/23 08:29 Pulse 99 11/12/23 08:29 BP 126/80 11/12/23 08:29 Pulse Ox 97 11/12/23 08:29 Oxygen Delivery Method Room Air 11/12/23 08:29 BMI result Body Mass Index 18.6 Other: Pelvic exam done with a female medical affairs specialist in the room. Vagina: No erythematous area seen. Internal exam: Patient had a lot of discomfort in the vaginal probe was introduced. At the apex of the introitus, there is a small open area covered with white material. Tender to touch Assessment & Plan Assessment & Plan (1) Wound, open, vagina: Code(s): S31.40XA - Unspecified open wound of vagina and vulva, initial encounter Plan: Her care was discussed with her primary care provider. Zinc oxide cream to be prescribed. Patient has a follow-up appointment with her primary care at the end of this month. I encouraged her to keep the same. I suggested she take 1 dose of fluconazole. Patient has prescription at home and she will consider taking it. Medications: New silver sulfadiazine 1% (Silvadene) apply a 1.5 mm thickness 1 appl topical DAILY 20 grams 0RF Coding Level of Care Code Est Pt Level 4 (61783) Diagnoses Wound, open, vagina S31.40XA
[2023-11-12 08:29] VITALS: BP 126/80; PULSE 99; TEMP 36.7; O2SAT 97; BMI 18.6
== END 2023-11-12 09:21 | disposition home or self-care (01) ==
PROVIDERS: PCP Internal Medicine; Visit Provider Internal Medicine
DX: S31.40XA Unspecified open wound of vagina and vulva, initial encounter (principal)
CPT/HCPCS: 99214

== ENCOUNTER 2023-11-19 08:42 | Outpatient (AMB) | payer MEDICARE, SELFPAY ==
[2023-11-19 08:53] VITALS: BP 124/76; PULSE 94; O2SAT 96; BMI 18.9
--- NOTE | 2023-11-19 08:53 | MHC.PC.OV ---
Vital Signs 11/19/23 08:53 Height 5 ft 5 in Weight 113 lb 6 oz BMI 18.9 BP 124/76 Blood Pressure Location Lt brachial Position Sitting Pulse 94 Pulse Source Pulse Oximeter Pulse Oximetry (%) 96 Oxygen Delivery Method Room Air Intake Visit Reasons: Walk In /u~ Allergies Sulfa (Sulfonamide Antibiotics) Allergy (Unknown, Verified 11/19/23 08:54) Unknown Medication List - Last Reconciled 11/19/23 by Cassandra Carvalho MD Bacillus coagulans (Digestive Advantage Probiotics-Prebiotic) cells PO multivitamin 1 tab PO DAILY silver sulfadiazine 1% (Silvadene) 1 appl topical DAILY Tobacco use date assessed: 11/19/23 Fall risk assessment: No Falls in past year Last assessed Fall Risk: 11/19/23 Dental Screening Dental Screen Date: 11/19/23 Did you have a dental visit in the last 12 months?: Yes Did you have a dental problem in the last 6 months where you did not have access to dental care?: No Was dental information given to patient?: Patient has dentist HPI Walk In ~ HPI Details Patient is 78-year-old female came in today to be evaluated for rash in genital area Patient says that she is having this rash recurrently She was evaluated in our walk-in clinic an ulcer Which has healed Patient says that she does have hemorrhoids and sometimes they flare up I do see that she is wearing a tight jeans and nylon underwear On examination I do not see any ulcers today And there is no hemorrhoid which is causing any discomfort she does have 1 hemorrhoid which is not bleeding or thrombosed I would recommend to start wearing cotton underwear and lose bands. She is doing Sitz baths which is helping [facility] Surgical History History of hysterectomy Family History Mother High cholesterol Father No problems noted. Social History Housing: House Patient Tobacco Use Status: Current everyday Tobacco user Cigarettes Per Day: 12 e-Cigarette/Vaping Use: Never Used service: No Current occupational status: retired Cognitive needs: No Hearing needs: No Vision needs: No Questionnaire Thrive Questionnaire Date Thrive assessed: 01/10/22 AUDIT C Alcohol Use Questionnaire (AUDIT-C) 1. How often do you have a drink containing alcohol?: Never 3. How often do you have six or more drinks on one occasion?: Never Total Score: 0 Score Reviewed/Action Taken: Yes Review of Systems Const Denies chills and Denies fever(s) ENT Denies epistaxis and Denies nasal discharge Card Denies chest pain Resp Denies chest congestion, Denies cough and Denies hemoptysis GI Denies diarrhea and Denies nausea Skin/Breast Denies rash Neuro Reports no additional complaints Psych Reports no additional complaints Endo Reports no additional complaints Physical exam (Primary Care) Vital Signs: Last Vital Signs Pulse 94 11/19/23 08:53 BP 124/76 11/19/23 08:53 Pulse Ox 96 11/19/23 08:53 Oxygen Delivery Method Room Air 11/19/23 08:53 BMI result Body Mass Index 18.9 Tobacco/Smoking Status: Tobacco use Status Tobacco use date assessed 11/19/23 11/19/23 08:57 Patient Tobacco Use Status Current everyday Tobacco 11/19/23 08:57 e-Cigarette/Vaping Use Never Used 11/19/23 08:57 Thrive Assessment: Date of Thrive Assessment Date Thrive assessed 01/10/22 11/19/23 08:57 Const General: cooperative, comfortable and no acute distress Orientation/consciousness: patient oriented x3 HENMT Head: Yes normocephalic Eyes General: appearance normal, both eyes and all related structures Neck Neck: Yes supple Resp Effort & Inspection: normal respiratory effort, no cough and no stridor Cardio Rhythm: regular rhythm Heart sounds: S1 normal heart sound present and S2 normal heart sound present Other: No also genitalia, 1 non thrombosed nonpainful nonbleeding hemorrhoid Skin General skin exam: turgor normal Neuro General: patient oriented x3, tone normal and moves all extremities Extrem Right lower extremity: no edema Left lower extremity: no edema Assessment and Plan Assessment & Plan (1) Hemorrhoids, external: Code(s): K64.4 - Residual hemorrhoidal skin tags Plan Patient is 78-year-old female came in today to be evaluated for rash in genital area Patient says that she is having this rash recurrently She was evaluated in our walk-in clinic an ulcer Which has healed Patient says that she does have hemorrhoids and sometimes they flare up I do see that she is wearing a tight jeans and nylon underwear On examination I do not see any ulcers today And there is no hemorrhoid which is causing any discomfort she does have 1 hemorrhoid which is not bleeding or thrombosed I would recommend to start wearing cotton underwear and lose bands. She is doing Sitz baths which is helping Medications: New omeprazole 20 mg PO DAILY 90 caps 0RF Discontinued silver sulfadiazine 1% (Silvadene) apply a 1.5 mm thickness Discontinued Reason: Doctor's Order 1 appl topical DAILY 20 grams 0RF Coding Level of Care Code Est Pt Level 3 (29806) Diagnoses Hemorrhoids, external K64.4
== END 2023-11-19 10:40 | disposition home or self-care (01) ==
PROVIDERS: PCP Internal Medicine; Visit Provider Internal Medicine
DX: K64.4 Residual hemorrhoidal skin tags (principal)
CPT/HCPCS: 99213

== ENCOUNTER 2023-12-27 10:39 | Outpatient (AMB) | payer MEDICARE, SELFPAY ==
[2023-12-27 10:42] VITALS: BP 132/80; PULSE 101; O2SAT 95; BMI 18.2
--- NOTE | 2023-12-27 10:42 | MHC.PC.OV ---
Vital Signs 12/27/23 10:42 Height 5 ft 5 in Weight 109 lb 6 oz BMI 18.2 BP 132/80 Blood Pressure Location Lt brachial Position Sitting Pulse 101 H Pulse Source Pulse Oximeter Pulse Oximetry (%) 95 Oxygen Delivery Method Room Air Intake Visit Reasons: Follow Up Allergies Sulfa (Sulfonamide Antibiotics) Allergy (Unknown, Verified 12/27/23 10:45) Unknown Medication List - Last Reconciled 12/27/23 by Cassandra Carvalho MD Bacillus coagulans (Digestive Advantage Probiotics-Prebiotic) cells PO Tobacco use date assessed: 12/27/23 Fall risk assessment: No Falls in past year Last assessed Fall Risk: 12/27/23 Dental Screening Dental Screen Date: 12/27/23 Did you have a dental visit in the last 12 months?: No Did you have a dental problem in the last 6 months where you did not have access to dental care?: No Was dental information given to patient?: Patient has dentist HPI Follow Up HPI Details Patient is 78-year-old female came in today to be evaluated for possible UTI Patient has been having symptoms for the past 2 days She says that when she urinate it proctor Patient says that she was having loose stools before it started happening We discussed proper hygiene methods with the use of water rather than tissue paper to avoid contamination of urethra Extensive discussion conducted with the patient elaborating the use of small watering can then washing hands I am treating her with Levaquin 250 mg once a day 5 days Nystatin cream sent for possible yeast infection which patient does end up getting after the antibiotic She has this problem recurrently and has seen urologist as well. [facility] Surgical History History of hysterectomy Family History Mother High cholesterol Father No problems noted. Social History Housing: House Patient Tobacco Use Status: Current everyday Tobacco user Cigarettes Per Day: 12 e-Cigarette/Vaping Use: Never Used service: No Current occupational status: retired Cognitive needs: No Hearing needs: No Vision needs: No Questionnaire Thrive Questionnaire Date Thrive assessed: 01/10/22 AUDIT C Alcohol Use Questionnaire (AUDIT-C) 1. How often do you have a drink containing alcohol?: Never 3. How often do you have six or more drinks on one occasion?: Never Total Score: 0 Score Reviewed/Action Taken: Yes Review of Systems Const Denies chills and Denies fever(s) ENT Denies epistaxis and Denies nasal discharge Card Denies chest pain Resp Denies chest congestion, Denies cough and Denies hemoptysis GI Denies diarrhea and Denies nausea Skin/Breast Denies rash Neuro Reports no additional complaints Psych Reports no additional complaints Endo Reports no additional complaints Physical exam (Primary Care) Vital Signs: Last Vital Signs Pulse 101 H 12/27/23 10:42 BP 132/80 12/27/23 10:42 Pulse Ox 95 12/27/23 10:42 Oxygen Delivery Method Room Air 12/27/23 10:42 BMI result Body Mass Index 18.2 Tobacco/Smoking Status: Tobacco use Status Tobacco use date assessed 12/27/23 12/27/23 10:48 Patient Tobacco Use Status Current everyday Tobacco 12/27/23 10:48 e-Cigarette/Vaping Use Never Used 12/27/23 10:48 Thrive Assessment: Date of Thrive Assessment Date Thrive assessed 01/10/22 12/27/23 10:48 Const General: cooperative, comfortable and no acute distress Orientation/consciousness: patient oriented x3 HENMT Head: Yes normocephalic Eyes General: appearance normal, both eyes and all related structures Neck Neck: Yes supple Resp Effort & Inspection: normal respiratory effort, no cough and no stridor Cardio Rhythm: regular rhythm Heart sounds: S1 normal heart sound present and S2 normal heart sound present GI Other: No pain with palpation General: Yes no CVA tenderness Back/Spine/Pelvis Back: no CVA tenderness Skin General skin exam: turgor normal Neuro General: patient oriented x3, tone normal and moves all extremities Extrem Right lower extremity: no edema Left lower extremity: no edema Results AMB Urinalysis, Automated UA Leukoctes 15 Kellee/uL Last Edit by Josselyn Marshall MA on 12/27/23 10:57 UA Nitrite Negative Last Edit by Josselyn Marshall MA on 12/27/23 10:57 UA Urobilinogen 0.2 mg/dL Last Edit by Josselyn Marshall MA on 12/27/23 10:57 UA Protein 15 mg/dL Last Edit by Josselyn Marshall MA on 12/27/23 10:57 UA pH 5.5 Last Edit by Josselyn Marshall MA on 12/27/23 10:57 UA Blood 25 Alexander/uL Last Edit by Josselyn Marshall MA on 12/27/23 10:57 UA Specific [place] 1.030 Last Edit by Josselyn Marshall MA on 12/27/23 10:57 UA Ketone Negative Last Edit by Josselyn Marshall MA on 12/27/23 10:57 UA Bilirubin 1 mg/dL Last Edit by Josselyn Marshall MA on 12/27/23 10:57 UA Glucose 0 mg/dL Last Edit by Josselyn Marshall MA on 12/27/23 10:57 Results Reviewed Results Reviewed: Laboratory Last Values Urine pH (Auto) 5.5 12/27/23 10:55 Specific [place] (Auto) 1.030 12/27/23 10:55 Urine Protein (Auto) 15 mg/dL 12/27/23 10:55 Glucose (UA)(Auto) 0 mg/dL 12/27/23 10:55 Urine Ketones (Auto) Negative 12/27/23 10:55 Urine Blood (Auto) 25 Alexander/uL 12/27/23 10:55 Urine Nitrite (Auto) Negative 12/27/23 10:55 Urine Bilirubin (Auto) 1 mg/dL 12/27/23 10:55 Urine Urobilinogen (Auto) 0.2 mg/dL 12/27/23 10:55 Leukocyte Esterase (Auto) 15 Kellee/uL 12/27/23 10:55 Assessment and Plan Assessment & Plan (1) Acute cystitis: Code(s): N30.00 - Acute cystitis without hematuria Qualifiers: Hematuria presence: with hematuria Qualified Code(s): N30.01 - Acute cystitis with hematuria Plan Patient is 78-year-old female came in today to be evaluated for possible UTI Patient has been having symptoms for the past 2 days She says that when she urinate it proctor Patient says that she was having loose stools before it started happening We discussed proper hygiene methods with the use of water rather than tissue paper to avoid contamination of urethra Extensive discussion conducted with the patient elaborating the use of small watering can then washing hands I am treating her with Levaquin 250 mg once a day 5 days Nystatin cream sent for possible yeast infection which patient does end up getting after the antibiotic She has this problem recurrently and has seen urologist as well. Orders: Orders Urine Culture Today N30.00 - Acute cystitis without hematuria Medications: New levofloxacin 250 mg PO DAILY 5 tabs 0RF 5 days nystatin 1 appl topical DAILY 30 grams 1RF 30 days Coding Level of Care Code Est Pt Level 3 (74040) Complex EM visit Add On G2211 Diagnoses Acute cystitis with hematuria N30.01 Hematuria presence: with hematuria
== END 2023-12-27 12:47 | disposition home or self-care (01) ==
PROVIDERS: PCP Internal Medicine; Visit Provider Internal Medicine
DX: N30.01 Acute cystitis with hematuria (principal)
CPT/HCPCS: 99213; G2211

== ENCOUNTER 2023-12-27 13:33 | Outpatient (REF) | payer MEDICARE, SELFPAY | END 2023-12-27 13:34 | disposition home or self-care (01) | LOC: HO.LNP 13:33 | PROVIDERS: Visit Provider Internal Medicine | DX: N30.00 Acute cystitis without hematuria (principal) | CPT/HCPCS: 87086 ==

== ENCOUNTER 2023-12-28 11:05 | Outpatient (AMB) | payer MEDICARE, SELFPAY ==
[2023-12-28 11:16] VITALS: BP 130/80; PULSE 92; TEMP 36.8; O2SAT 97; BMI 18.1
--- NOTE | 2023-12-28 11:16 | AM.OFFWIN_ITS ---
Intake Vital Signs 12/28/23 11:16 Height 5 ft 5 in Weight 109 lb BMI 18.1 BP 130/80 Blood Pressure Location Rt brachial Position Sitting Pulse 92 Pulse Source Pulse Oximeter Temp 98.3 F Temp Source Oral Pulse Oximetry (%) 97 Intake Visit Reasons: EP Vaginal burning Intake Note: pt is here for vaginal burning Patient Tobacco Use Status: Current everyday Tobacco user Allergies Sulfa (Sulfonamide Antibiotics) Allergy (Unknown, Verified 12/28/23 11:16) Unknown Do you need a note to return to daycare/school/sports/work: No HPI HPI Comments History of Present Illness Details This is a madina 78-year-old female with a past medical history of rectal pain and vaginal itching presenting for evaluation of both vaginal itching and burning that she has had for the past 4 months. Patient denies having any fevers, chills, dysuria, urinary frequency or vaginal discharge. Patient was seen in clinic yesterday and prescribed Levaquin which she has taken only 1 tablet and nystatin which she has used topically only once last night. Patient returns today because the burning persists. Patient's urinalysis yesterday was nitrite negative with leukocytes and hematuria however the urine culture reviewed today reveals likely contamination and no acute urinary tract infection. [facility] Surgical History History of hysterectomy Family History Mother High cholesterol Father No problems noted. Social History Housing: House Patient Tobacco Use Status: Current everyday Tobacco user Cigarettes Per Day: 12 e-Cigarette/Vaping Use: Never Used service: No Current occupational status: retired Cognitive needs: No Hearing needs: No Vision needs: No Review of Systems Const All systems reviewed & are unremarkable except as noted in HPI and below Denies body aches, Denies chills, Denies fatigue and Denies fever(s) Eyes Reports as per HPI GI Reports no additional complaints and Denies abdominal pain Reports no additional complaints, Reports genital pruritis, Denies dysuria, Denies vaginal discharge and Reports vaginal pruritus Musc Reports no additional complaints Skin/Breast Reports system reviewed and no additional complaints, except as documented Endo Denies fatigue Physical Exam Vital Signs: Last Vital Signs Temp 97.8 F 12/28/23 11:16 Pulse 92 12/28/23 11:16 BP 130/80 12/28/23 11:16 Pulse Ox 97 12/28/23 11:16 BMI result Body Mass Index 18.1 Const General: cooperative, healthy appearing, comfortable, no acute distress and well developed; No ill appearing Nutritional Appearance: thin Orientation/consciousness: patient oriented x3 Limitations: no limitations GI Inspection: No distended and No obesity Palpation (GI): Soft to palpation, nontender and no guarding Other: Vagina is dry in appearance, nontender, no active vaginal discharge noted, no lesions or lacerations noted of the labia. General: Yes Bimanual renal exam normal bilaterally, Yes bladder normal to palpation, Yes CVA tenderness and Yes no CVA tenderness Speculum Exam - Vagina: no foreign bodies Bimanual exam- vagina & uterus: bladder normal to palpation OB/external & speculum: external exam normal; no foreign bodies, no vaginal laceration, no vulvar erythema, no vulvar tenderness and vaginal discharge Back/Spine/Pelvis Back: no CVA tenderness and CVA tenderness Skin General skin exam: no rashes or lesions noted Neuro General: patient oriented x3 Psych Appearance: grossly normal Mental Status: mental status grossly normal Insight: Good insight present (Psych) Judgement: Good judgement present (Psych) Results AMB Urinalysis, Automated UA Leukoctes 0 Kellee/uL Last Edit by Hao Romero CMA on 12/28/23 11:41 UA Nitrite Negative Last Edit by Hao Romero CMA on 12/28/23 11:41 UA Urobilinogen 0.2 mg/dL Last Edit by Hao Romero CMA on 12/28/23 11 :41 UA Protein 0 mg/dL Last Edit by Hao Romero CMA on 12/28/23 11:41 UA pH 6.0 Last Edit by Hao Romero CMA on 12/28/23 11:41 UA Blood 0 Alexander/uL Last Edit by Hao Romero CMA on 12/28/23 11:41 UA Specific [place] 1.005 Last Edit by Hao Romero CMA on 12/28/23 11:41 UA Ketone Negative Last Edit by Hao Romero CMA on 12/28/23 11:41 UA Bilirubin 0 mg/dL Last Edit by Hao Romero CMA on 12/28/23 11:41 UA Glucose 0 mg/dL Last Edit by Hao Romero CMA on 12/28/23 11:41 Results Reviewed Results Reviewed: UA reviewed; improved from UA yesterday. Urine culture from yesterday also reviewed with reveals likely contamination. Assessment & Plan Assessment & Plan (1) Vaginal burning: Comment: Patient is instructed to discontinue the Levaquin and to continue nystatin BID as previously prescribed for 7-10 days. Code(s): N94.9 - Unspecified condition associated with female genital organs and menstrual cycle Plan: Nystatin b.i.d. for 7-10 days. Patient will follow up with her primary care physician thereafter to discuss ongoing management of her vaginal dryness. Orders: Orders AMB Urinalysis Automated Today Z13.9 - Encounter for screening, unspecified Coding Level of Care Code Est Pt Level 3 (26431) Diagnoses Vaginal burning N94.9 Time Spent (min) 25
== END 2023-12-28 11:56 | disposition home or self-care (01) ==
PROVIDERS: PCP Internal Medicine; Visit Provider Physician Assistant
DX: N94.9 Unspecified condition associated with female genital organs and menstrual cycle (principal); Z13.9 Encounter for screening, unspecified
CPT/HCPCS: 81003; 99213

== ENCOUNTER → 2024-01-10 09:22 | Outpatient (BNVA) | payer MEDICARE, SELFPAY | PROVIDERS: PCP Internal Medicine; Visit Provider Urology | DX: N39.0 Urinary tract infection, site not specified (principal); R35.0 Frequency of micturition; Z87.440 Personal history of urinary (tract) infections | CPT/HCPCS: 51701 ==

== ENCOUNTER 2024-02-14 08:03 | Outpatient (AMB) | payer MEDICARE, SELFPAY ==
--- NOTE | 2024-02-14 08:33 | A.OFFVIS_ITS ---
Intake Visit Reasons: UTI follow up Intake Note: Patient presents today for a follow-up Recurrent UTI's: Meds- None Allergies to Antibiotic- Sulfonamide Blood Thinner- None Patient Symptoms: None Senior Production Manager Required: No Accompanied by: Self / Same As Patient Allergies Penicillins Allergy (Unknown, Verified 03/14/24 09:36) Unknown Sulfa (Sulfonamide Antibiotics) Allergy (Unknown, Verified 03/14/24 09:36) Unknown HPI Comments Details: 02/14/24--Vy is a 78-year-old female who has been followed for cystitis and septated renal cyst. She called to be seen due to persistent dysuria. UA - Negative. In discussion with her today her symptoms are consistent with vaginitis. Nystatin ointment prescribed. Pt encouraged to fu with BARGE LOADER. Review of charts: 05/22/2023?She is followed today for US. She was last seen by me on 03/21/2023 for urinary tract infections. Ordered renal and bladder ultrasound during that time. Patient was educated that nicotine is a risk factor for some urinary tract cancers, and she was advised to follow-up in 2 months to consider cysto at that time. I reviewed the retroperitoneum US results from 05/03/2023 revealed no renal mass, calculus or obstruction is seen.? A 5. 3 cm in maximal diameter mildly complex right renal cyst is seen, with fine septation. BLADDER: Well distended and normal. Bilateral ureteral jets are demonstrated. Prevoid bladder volume is 183 mL. Postvoid bladder volume is 18 mL. I reviewed the urine culture results from 04/18/2023 which came back < 10,000 cfu/ml. She denies any other urinary symptoms today in the office today. I will hold on cystoscopy at this time. Discussed further evaluation of septated renal cyst. Evaluation today?UA? leukocytes: 15 Kellee; blood: 10 Alexander. 05/22/2023: Plan: CAT scan of the abdomen, renal mass protocol. Will continue to monitor urine. Follow-up in 1 year. 03/21/2023? She states that she saw a new health care provider several months ago, who suggested some life style modifications by cutting red meat, and cutting back on sugar diet. She states that upon dietary modifications, she developed significant hair loss and also had some urinary symptoms including urinary frequency and dysuria.? She was seen by her PCP and she was told that she had urinary tract infections. She was treated with antibiotics which caused a yeast infection in rectal area, which was treated with anti fungal. She notes that she developed irritating voiding symptoms again. She states that she added acidophilus to her diet and notes that her urinary symptoms have resolved currently.? She has a comorbidities of nicotine dependence. She is smoking since the age of 15. She states that she smokes a pack daily. She denies hematuria and urine incontinence. Patient has had hysterectomy, and one ovary was removed at the age of 27.? She also had appendectomy at the time of hysterectomy. She denies any pregnancies. Evaluation today ? Leukocytes: negative; blood: negative. [facility] Surgical History History of hysterectomy Family History Mother High cholesterol Father No problems noted. Social History Housing: House Patient Tobacco Use Status: Current everyday Tobacco user Cigarettes Per Day: 12 e-Cigarette/Vaping Use: Never Used service: No Current occupational status: retired Cognitive needs: No Hearing needs: No Vision needs: No Review of Systems Const All systems reviewed & are unremarkable except as noted in HPI and below Reports no additional complaints Eyes Reports no additional complaints ENT Reports no additional complaints Card Reports no additional complaints Resp Reports no additional complaints GI Reports no additional complaints Reports as per HPI Musc Reports no additional complaints Skin/Breast Reports system reviewed and no additional complaints, except as documented Neuro Reports no additional complaints Psych Reports no additional complaints Endo Reports no additional complaints Godwin/Lymph Reports no additional complaints Aller/Immun Reports no additional complaints Results AMB Urinalysis, Automated UA Leukoctes 0 Kellee/uL Last Edit by KRISTYN Thomson on 02/14/24 08:37 UA Nitrite Negative Last Edit by KRISTYN Thomson on 02/14/24 08:37 UA Urobilinogen 0.2 mg/dL Last Edit by KRISTYN Thomson on 02/14/24 08:3 7 UA Protein 6.0 mg/dL Last Edit by KRISTYN Thomson on 02/14/24 08:37 UA pH 6.0 Last Edit by Pipo Quintanilla Maurilio on 02/14/24 08:37 UA Blood 0 Alexander/uL Last Edit by Pipo Quintanilla Maurilio on 02/14/24 08:37 UA Specific [place] 1.020 Last Edit by KRISTYN Thomson on 02/14/24 08: 37 UA Ketone Negative Last Edit by Pipo Quintanilla Maurilio on 02/14/24 08:37 UA Bilirubin 5 mg/dL Last Edit by Pipo Quintanilla Maurilio on 02/14/24 08:37 UA Glucose 0 mg/dL Last Edit by Pipo Quintanilla Maurilio on 02/14/24 08:37 Results Reviewed Results Reviewed: Laboratory Last Values Urine pH (Auto) 6.0 02/14/24 08:35 Specific [place] (Auto) 1.020 02/14/24 08:35 Urine Protein (Auto) 6.0 mg/dL 02/14/24 08:35 Glucose (UA)(Auto) 0 mg/dL 02/14/24 08:35 Urine Ketones (Auto) Negative 02/14/24 08:35 Urine Blood (Auto) 0 Alexander/uL 02/14/24 08:35 Urine Nitrite (Auto) Negative 02/14/24 08:35 Urine Bilirubin (Auto) 5 mg/dL 02/14/24 08:35 Urine Urobilinogen (Auto) 0.2 mg/dL 02/14/24 08:35 Leukocyte Esterase (Auto) 0 Kellee/uL 02/14/24 08:35 Date of Service: 05/03/23 EXAMINATION:? US RETROPERITONEAL COMPLETE (RENAL) CLINICAL INFORMATION: Urinary tract infection, site not specified. COMPARISON:? None available. FINDINGS: RIGHT KIDNEY: 8.8 x 3.4 x 6.2 cm (SAG x AP x TRV). The kidney is normal in size, contour, and echogenicity. Renal cortical thickness is normal. No renal calculi or hydronephrosis.? At the interpolar aspect, an 8 mm benign, simple cyst is seen. At the lower pole, a 5.7 cm benign, simple cyst is seen. These require no imaging follow-up. At the lower pole, a 5.2 x 3.6 x 5.3 cm mildly complex cyst is seen, with fine septation. This shows no mural nodularity, and there is mild color Doppler flow noted of the septation. LEFT KIDNEY: 10.7 x 4.6 x 4.5 cm (SAG x AP x TRV). The kidney is normal in size, contour, and echogenicity. Renal cortical thickness is normal. No calculi or focal parenchymal lesions. No hydronephrosis. BLADDER: Well distended and normal. Bilateral ureteral jets are demonstrated. Prevoid bladder volume is 183 mL. Postvoid bladder volume is 18 mL. IMPRESSION:? 1. No renal mass, calculus or obstruction is seen. 2. A 5. 3 cm in maximal diameter mildly complex right renal cyst is seen, with fine septation. If relevant to patient management, this can be further evaluated with dedicated CT or MRI (contrast-enhanced; renal mass protocol) Ordered:? Urine Culture? Procedure?Result?Verified?Site ? Urine Culture? Final?03/30/22 ? Report Result?< 10,000 cfu/ml Assessment & Plan Assessment & Plan (1) Vaginal burning: Comment: Patient is instructed to discontinue the Levaquin and to continue nystatin BID as previously prescribed for 7-10 days. Code(s): N94.9 - Unspecified condition associated with female genital organs and menstrual cycle Category: Medical Plan: Nystatin b.i.d. for 7-10 days. Patient will follow up with her primary care physician thereafter to discuss ongoing management of her vaginal dryness. 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 The patient expressed understanding and agreement with the above treatment plan. The patient is aware they should contact our office by phone for worsening of their current condition or the appearance of new symptoms. Compliance is encouraged with any medications and followup testing that is ordered. It is a privilege to be allowed the opportunity to participate in the urologic care of your patient. If you have any questions or concerns regarding treatment for the above conditions please do not hesitate to contact me. The office telephone contact is [phone]. This note is constructed in part using voice recognition software. While every effort has been made to ensure accuracy mother repairer errors may have been included. Yours sincerely, Sushant Denise MD Coding Level of Care Code Est Pt Level 3 (54024) Diagnoses Vaginal burning N94.9 Vaginitis and vulvovaginitis, unspecified N76.0 Complex renal cyst N28.1 Chronic cystitis N30.20
== END 2024-02-14 09:00 | disposition home or self-care (01) ==
PROVIDERS: PCP Internal Medicine; Visit Provider Urology
DX: N94.9 Unspecified condition associated with female genital organs and menstrual cycle (principal); N76.0 Acute vaginitis; N28.1 Cyst of kidney, acquired; N30.20 Other chronic cystitis without hematuria
CPT/HCPCS: 99213

== ENCOUNTER → 2024-02-14 08:03 | Outpatient (BNVA) | payer MEDICARE, SELFPAY | PROVIDERS: PCP Internal Medicine; Visit Provider Urology | DX: N94.9 Unspecified condition associated with female genital organs and menstrual cycle (principal); N76.0 Acute vaginitis | CPT/HCPCS: 81003; 99212 ==

== ENCOUNTER 2024-02-21 14:18 | Outpatient (AMB) | payer MEDICARE, SELFPAY ==
--- NOTE | 2024-02-21 14:24 | AM.OFFWIN_ITS ---
Intake Vital Signs 02/21/24 14:25 Height 5 ft 5 in Weight 105 lb BMI 17.5 BP 136/84 Blood Pressure Location Rt brachial Position Sitting Pulse 84 Pulse Source Pulse Oximeter Temp 98.5 F Temp Source Oral Pulse Oximetry (%) 95 Oxygen Delivery Method Room Air Intake Visit Reasons: EP tail bone pain Intake Note: pt here c/o tail bone pain. Started 3 weeks ago Patient Tobacco Use Status: Current everyday Tobacco user Allergies Penicillins Allergy (Unknown, Verified 02/21/24 14:38) Unknown Sulfa (Sulfonamide Antibiotics) Allergy (Unknown, Verified 02/21/24 14:38) Unknown Do you need a note to return to daycare/school/sports/work: No HPI HPI Comments History of Present Illness Details 78 y/o female patient who presents to kenny josé in clinic with c/o Tail bone pain x 3 weeks. Pt currently sees Chiropractor for back pain issues. H/o constipation, used to take Metamucil in the past with good relief. [facility] Surgical History History of hysterectomy Family History Mother High cholesterol Father No problems noted. Social History Housing: House Patient Tobacco Use Status: Current everyday Tobacco user Cigarettes Per Day: 12 e-Cigarette/Vaping Use: Never Used service: No Current occupational status: retired Cognitive needs: No Hearing needs: No Vision needs: No Review of Systems Const All systems reviewed & are unremarkable except as noted in HPI and below Physical Exam Vital Signs: Last Vital Signs Temp 98.5 F 02/21/24 14:25 Pulse 84 02/21/24 14:25 BP 136/84 02/21/24 14:25 Pulse Ox 95 02/21/24 14:25 Oxygen Delivery Method Room Air 02/21/24 14:25 BMI result Body Mass Index 17.5 Const General: comfortable and no acute distress Nutritional Appearance: underweight Orientation/consciousness: patient oriented x3 GI Palpation (GI): Soft to palpation, not firm, nontender, no guarding, not rigid and No hepatosplenomegaly present Auscultation: normal bowel sounds Rectal Exam - Female: deferred Back/Spine/Pelvis Sacrum: no swelling and tenderness midline Coccyx: no swelling and Coccyx tenderness present on direct palpation Neuro General: patient oriented x3, gait normal and moves all extremities Psych Speech and movement: Normal speech and movement present Assessment & Plan Assessment & Plan (1) Coccyx contusion: Code(s): S30.0XXA - Contusion of lower back and pelvis, initial encounter Qualifiers: Encounter type: initial encounter Qualified Code(s): S30.0XXA - Contusion of lower back and pelvis, initial encounter Plan: Acetaminophen for pain relief Xray ordered Advised the use sitting soft cushions Sitz Baths Plan Take Metamucil for constipation prevention and Fiber intake. Increased water and fluid intake Active lifestyle. Orders: Orders XR sacrum coccyx min 2V Today S30.0XXA - Contusion of lower back and pelvis, initial encounter Coding Level of Care Code Est Pt Level 4 (24606) Diagnoses Contusion of coccyx, initial encounter S30.0XXA Encounter type: initial encounter Time Spent (min) 20
[2024-02-21 14:25] VITALS: BP 136/84; PULSE 84; TEMP 36.9; O2SAT 95; BMI 17.5
== END 2024-02-21 15:48 | disposition home or self-care (01) ==
PROVIDERS: PCP Internal Medicine; Visit Provider Nurse Practitioner Family
DX: S30.0XXA Contusion of lower back and pelvis, initial encounter (principal)
CPT/HCPCS: 99214

== ENCOUNTER 2024-02-21 15:14 | Outpatient (REF) | payer MEDICARE, SELFPAY ==
--- NOTE | ~2024-02-21 | XR_ITS ---
EXAMINATION: XR SACRUM AND COCCYX CLINICAL INFORMATION: Tail bone pain x3 weeks. COMPARISON: None available. TECHNIQUE: 3 radiographs were obtained. FINDINGS: The sacrum and coccyx appear intact. There are degenerative changes of the lower lumbar spine and sacroiliac joints. XR/XR sacrum coccyx min 2V IMPRESSION: No fracture or dislocation.
== END 2024-02-21 15:15 | disposition home or self-care (01) ==
LOC: HO.HMGCX 15:14
PROVIDERS: PCP Internal Medicine; Visit Provider Nurse Practitioner Family
DX: S30.0XXA Contusion of lower back and pelvis, initial encounter (principal)
CPT/HCPCS: 72220

== ENCOUNTER 2024-03-03 15:13 | Outpatient (AMB) | payer MEDICARE, SELFPAY ==
--- NOTE | 2024-03-03 15:14 | AM.OFFWIN_ITS ---
Intake Vital Signs 03/03/24 15:15 Height 5 ft 5 in Weight 107 lb BMI 17.8 BP 148/86 H Blood Pressure Location Lt brachial Position Sitting Pulse 96 Pulse Source Pulse Oximeter Temp 98.7 F Temp Source Oral Pulse Oximetry (%) 96 Oxygen Delivery Method Room Air Intake Visit Reasons: EP tailbone pain traveling down rt lg Intake Note: pt is here c/o tailbone pain. Radiating down RT leg. Ongoing for about a month since chiropractor Patient Tobacco Use Status: Current everyday Tobacco user Allergies Penicillins Allergy (Unknown, Verified 03/03/24 15:15) Unknown Sulfa (Sulfonamide Antibiotics) Allergy (Unknown, Verified 03/03/24 15:15) Unknown Do you need a note to return to daycare/school/sports/work: No HPI HPI Comments History of Present Illness Details Patient is a 78-year-old female in today for a sick visit. She is reporting symptoms of tailbone pain x1 month tele with pain radiating down the right leg. she reports this started after a chiropractor visit. Patient was seen in our walk-in clinic for similar issue had sacrum and coccyx x-ray which revealed no abnormalities, however did reveal SI and lumbar degenerative disease. Patient also had x-ray 1 year prior which demonstrated arthritis of the right hip. will repeat right hip x-ray. Will give patient prednisone to be taken as directed. Will follow-up with results discussed with patient potential benefit of physical therapy. Patient is declining doughnut pillow as he believes it makes it worse, will continue to use soft foam she has home tested on. She denies tingling or numbness down her legs denies saddle numbness. [facility] Surgical History History of hysterectomy Family History Mother High cholesterol Father No problems noted. Social History Housing: House Patient Tobacco Use Status: Current everyday Tobacco user Cigarettes Per Day: 12 e-Cigarette/Vaping Use: Never Used service: No Current occupational status: retired Cognitive needs: No Hearing needs: No Vision needs: No Review of Systems Const All systems reviewed & are unremarkable except as noted in HPI and below Denies chills and Denies fever(s) Card Denies chest pain and Denies dyspnea Resp Denies dyspnea Musc Reports back pain (Sacrum), Reports arthralgias (right hip), Denies numbness, Reports radiating pain into limb (right leg) and Denies tingling Skin/Breast Denies unusual bruising Neuro Denies numbness, Denies tingling and Denies paresthesias Physical Exam Vital Signs: Last Vital Signs Temp 98.7 F 03/03/24 15:15 Pulse 96 03/03/24 15:15 BP 148/86 H 03/03/24 15:15 Pulse Ox 96 03/03/24 15:15 Oxygen Delivery Method Room Air 03/03/24 15:15 BMI result Body Mass Index 17.8 Const Other: Appearance: Alert.? Oriented X3.? No acute distress.? Head: Normocephalic, atraumatic, no step-offs or deformities Eyes: Pupils equal, round and reactive to light.? ENT: Pharynx normal.? Neck: Normal inspection.? Neck supple.? CVS: Normal heart rate and rhythm.? Pulses normal.? Respiratory: No respiratory distress.? Breath sounds normal.? Abdomen: Soft and nontender.? Skin: Skin warm and dry.? Normal skin color.? Normal skin turgor.? Extremities: No lower extremity edema. No hip tenderness. Back: No midline tenderness, no C-spine tenderness, full range of motion, no CVA tenderness bilaterally. +Tenderness with sitting down. Neuro: Oriented X 3.? No motor deficit.? No sensory deficit. CN 2-12 intact Results Reviewed Results Reviewed: XR/XR sacrum coccyx min 2V IMPRESSION: No fracture or dislocation Assessment & Plan Assessment & Plan (1) Right hip pain: Comment: Potentially osteoarthritis the right hip, will obtain right hip x-ray. pain radiating down right hip chronic also be from lumbar degenerative disease. Will give patient small course of prednisone for inflammation. She has been instructed to ice and rest instructed area. Patient has been instructed to continue to sit on soft foam. Discussed with patient will follow-up with x-ray results. I discussed with her signs of worsening symptoms and when to report back to the walk-in or when to present to the ED. Code(s): M25.551 - Pain in right hip Plan: will order PT based on results. Orders: Orders XR hip RT min 2V Today M25.551 - Pain in right hip Medications: New prednisone 20 mg PO DAILY 5 tabs 0RF Coding Level of Care Code Est Pt Level 3 (89051) Diagnoses Right hip pain M25.551 Time Spent (min) 24
[2024-03-03 15:15] VITALS: BP 148/86; PULSE 96; TEMP 37.1; O2SAT 96; BMI 17.8
== END 2024-03-03 17:03 | disposition home or self-care (01) ==
PROVIDERS: PCP Internal Medicine; Visit Provider Nurse Practitioner Primary Care
DX: M25.551 Pain in right hip (principal)
CPT/HCPCS: 99213

== ENCOUNTER 2024-03-04 08:06 | Outpatient (REF) | payer MEDICARE, SELFPAY ==
--- NOTE | ~2024-03-04 | XR_ITS ---
EXAMINATION: XR HIP, RIGHT CLINICAL INFORMATION: Right hip pain COMPARISON: 09/12/2022 TECHNIQUE: Two views of the right hip. FINDINGS: There is moderate circumferential narrowing of the right hip joint space with spurring off the acetabulum. Spurring is also seen about the greater trochanter. No evidence though for fracture, dislocation or destructive process. XR/XR hip RT min 2V IMPRESSION: Degenerative changes noted but no acute findings.
== END 2024-03-04 08:07 | disposition home or self-care (01) ==
LOC: HO.HMGCX 08:06
PROVIDERS: PCP Internal Medicine; Visit Provider Nurse Practitioner Primary Care
DX: M25.551 Pain in right hip (principal)
CPT/HCPCS: 73502

== ENCOUNTER 2024-03-14 09:07 | Outpatient (AMB) | payer MEDICARE, SELFPAY ==
[2024-03-14 09:15] VITALS: BP 110/80; PULSE 91; TEMP 36.8; O2SAT 95; BMI 17.3
--- NOTE | 2024-03-14 09:15 | AM.OFFWIN_ITS ---
Intake Vital Signs 03/14/24 09:15 Height 5 ft 5 in Weight 104 lb BMI 17.3 BP 110/80 Blood Pressure Location Rt brachial Position Sitting Pulse 91 Pulse Source Pulse Oximeter Temp 98.2 F Temp Source Oral Pulse Oximetry (%) 95 Oxygen Delivery Method Room Air Intake Visit Reasons: EP tailbone pain Intake Note: Pt is here today c/o tailbone pain due to seeing a chiroprator x1 month ago Patient Tobacco Use Status: Current everyday Tobacco user Allergies Penicillins Allergy (Unknown, Verified 03/14/24 09:36) Unknown Sulfa (Sulfonamide Antibiotics) Allergy (Unknown, Verified 03/14/24 09:36) Unknown HPI HPI Comments History of Present Illness Details 78-year-old female here today with chief complaints of burning your her tailbone. She reports that this started about a month ago. She has been sitting more than usual. She has been applying Vaseline, powder with no relief to the area. Did try nystatin x1 yesterday that she had at home. Exam Offered and declined a smog technician, skin fungal around anus extending towards her perineum, intact Moves all extremities x4, neurovascularly intact [facility] Surgical History History of hysterectomy Family History Mother High cholesterol Father No problems noted. Social History Housing: House Patient Tobacco Use Status: Current everyday Tobacco user Cigarettes Per Day: 12 e-Cigarette/Vaping Use: Never Used service: No Current occupational status: retired Cognitive needs: No Hearing needs: No Vision needs: No Physical Exam Vital Signs: Last Vital Signs Temp 98.2 F 03/14/24 09:15 Pulse 91 03/14/24 09:15 BP 110/80 03/14/24 09:15 Pulse Ox 95 03/14/24 09:15 Oxygen Delivery Method Room Air 03/14/24 09:15 BMI result Body Mass Index 17.3 Assessment & Plan Assessment & Plan (1) Candidiasis of anus: Code(s): B37.89 - Other sites of candidiasis Plan: . Plan . Medications: New nystatin apply to affected area 1 appl topical TID 30 days 30 grams 0RF Patient Instructions: Do not use anymore [id number] powder to the area, do not use anymore Vaseline. Use nystatin 3 times a day until the skin is relieved. Avoid prolonged sitting, avoid pressure to the area. Coding Level of Care Code Est Pt Level 3 (39381) Diagnoses Candidiasis of anus B37.89
== END 2024-03-14 09:54 | disposition home or self-care (01) ==
PROVIDERS: PCP Internal Medicine; Visit Provider Nurse Practitioner Family
DX: B37.89 Other sites of candidiasis (principal)
CPT/HCPCS: 99213

== ENCOUNTER 2024-03-16 08:48 | Outpatient (AMB) | payer MEDICARE, SELFPAY ==
--- NOTE | 2024-03-16 09:41 | MHC.OFFWIV ---
Intake Vital Signs 03/16/24 09:42 Height 5 ft 5 in Weight 105 lb BMI 17.5 BP 128/80 Blood Pressure Location Lt brachial Position Sitting Pulse 95 Pulse Source Pulse Oximeter Temp 98.3 F Temp Source Oral Pulse Oximetry (%) 96 Oxygen Delivery Method Room Air Intake Visit Reasons: Inflammed Rectum Area Intake Note: pt is here c/o rectal pain/swelling. Patient Tobacco Use Status: Current everyday Tobacco user Allergies Penicillins Allergy (Unknown, Verified 03/16/24 09:42) Unknown Sulfa (Sulfonamide Antibiotics) Allergy (Unknown, Verified 03/16/24 09:42) Unknown Do you need a note to return to daycare/school/sports/work: No HPI Inflammed Rectum Area HPI Details This note is constructed using voice recognition software. While every effort has been made to ensure accuracy, trash collector truck driver errors may have been included. The patient is a 78 year old female who presents to the clinic today with complaints of irritation to her rectal area. She notes that she has a chronic history of low back and hip pain, and was unsure if this contributed. She is been using a heating pad to help improve her pain, however it seems that the pain is a little bit more tender to the touch in the rectal area. She denies any rectal bleeding, change in bowel pattern. She has not applied anything to the area to make it better. It seems to be worse when she is sitting on it, or if she is sweating. [facility] Surgical History History of hysterectomy Family History Mother High cholesterol Father No problems noted. Social History Housing: House Patient Tobacco Use Status: Current everyday Tobacco user Cigarettes Per Day: 12 e-Cigarette/Vaping Use: Never Used service: No Current occupational status: retired Cognitive needs: No Hearing needs: No Vision needs: No Review of Systems Const All systems reviewed & are unremarkable except as noted in HPI and below Physical Exam Vital Signs: Last Vital Signs Temp 98.3 F 03/16/24 09:42 Pulse 95 03/16/24 09:42 BP 128/80 03/16/24 09:42 Pulse Ox 96 07/22/24 09:42 Oxygen Delivery Method Room Air 03/16/24 09:42 BMI result Body Mass Index 17.5 Const General: cooperative, healthy appearing, comfortable, no acute distress and alert Orientation/consciousness: patient oriented x3 Limitations: no limitations Skin General skin exam: elasticity normal (for age) and turgor normal (for age) Rashes: rashes noted (erythematous, moist, flat rash to coccyx midline with fungal odor) Neuro General: patient oriented x3 Extrem General: Yes normal to inspection, Yes full ROM, Yes capillary refill normal and Yes normal exam except as noted Psych Appearance: grossly normal Mental Status: mental status grossly normal Speech and movement: Normal speech and movement present Affect: normal affect Assessment & Plan Assessment & Plan (1) Tinea corporis: Code(s): B35.4 - Tinea corporis Plan: Likely contributing to discomfort in the area. Advised keeping the area clean and dry. Advised when she is washing this to dab dry, abrasive techniques. Advised use nystatin powder, once symptoms have resolved may trial otc powder to keep area dry. Advised follow up with PCP he in symptoms or failure to resolve. Additionally for comfort suggested offloading positioning. Plan See above for full details and plan. Medications: New nystatin Clean and dry coccyx then apply powder 1 appl topical BID 7 days 15 grams 0RF rash Coding Level of Care Code Est Pt Level 3 (82750) Diagnoses Tinea corporis B35.4
[2024-03-16 09:42] VITALS: BP 128/80; PULSE 95; TEMP 36.8; O2SAT 96; BMI 17.5
== END 2024-03-16 10:50 | disposition home or self-care (01) ==
PROVIDERS: PCP Internal Medicine; Visit Provider Registered Nurse
DX: B35.4 Tinea corporis (principal)
CPT/HCPCS: 99213

== ENCOUNTER 2024-03-25 14:43 | Outpatient (AMB) | payer MEDICARE, SELFPAY ==
--- NOTE | 2024-03-25 14:48 | AM.OFFWIN_ITS ---
Intake Vital Signs 03/25/24 14:49 Height 5 ft 5 in Weight 105 lb BMI 17.5 BP 116/80 Blood Pressure Location Lt brachial Position Sitting Pulse 88 Pulse Source Pulse Oximeter Temp 98.4 F Temp Source Oral Pulse Oximetry (%) 96 Oxygen Delivery Method Room Air Intake Visit Reasons: tailbone pain Intake Note: pt c/o tailbone pain. Ongoing over 1 month Patient Tobacco Use Status: Current everyday Tobacco user Allergies Penicillins Allergy (Unknown, Verified 03/25/24 14:49) Unknown Sulfa (Sulfonamide Antibiotics) Allergy (Unknown, Verified 03/25/24 14:49) Unknown Do you need a note to return to daycare/school/sports/work: No HPI HPI Comments History of Present Illness Details This is a 78-year-old female presenting for the 5th time in 1 month for evaluation of tailbone pain. Patient states her pain originated after a chiropractic appointment approximately 1 month ago. Patient states she initially was using warm compresses followed by cool compresses but has not taken any Tylenol, ibuprofen or other pain medication for management of her discomfort. Patient describes the pain as a burning and aching pain in her tailbone that is present only when sitting. Patient has been diagnosed with a fungal infection for which she is currently using nystatin powder which she states has been helpful. Patient denies any radiation or worsening of pain. Additionally, patient denies any recent injury, trauma or fall. [facility] Surgical History History of hysterectomy Family History Mother High cholesterol Father No problems noted. Social History Housing: House Patient Tobacco Use Status: Current everyday Tobacco user Cigarettes Per Day: 12 e-Cigarette/Vaping Use: Never Used service: No Current occupational status: retired Cognitive needs: No Hearing needs: No Vision needs: No Review of Systems Const All systems reviewed & are unremarkable except as noted in HPI and below Reports as per HPI Eyes Reports no additional complaints ENT Reports no additional complaints Card Reports no additional complaints Resp Reports no additional complaints GI Reports no additional complaints Reports no additional complaints Musc Details: pain in tailbone Reports no additional complaints Skin/Breast Reports system reviewed and no additional complaints, except as documented Psych Reports no additional complaints Aller/Immun Reports no additional complaints Physical Exam Vital Signs: Last Vital Signs Temp 98.4 F 03/25/24 14:49 Pulse 88 03/25/24 14:49 BP 116/80 03/25/24 14:49 Pulse Ox 96 03/25/24 14:49 Oxygen Delivery Method Room Air 03/25/24 14:49 BMI result Body Mass Index 17.5 Const General: cooperative, comfortable, alert and awake Nutritional Appearance: thin Orientation/consciousness: patient oriented x3 Limitations: no limitations Back/Spine/Pelvis Sacroiliac joints: bilaterally nontender Sacrum: no ecchymosis, no erythema, no swelling, no tenderness and No sacral edema Coccyx: no swelling and no tenderness Skin Other: there is minimal peeling of dermis at the superior aspect of the gluteal cleft without erythema, edema or pain to palpation General skin exam: no rashes or lesions noted Neuro General: patient oriented x3 Psych Appearance: grossly normal Mental Status: mental status grossly normal Insight: Good insight present (Psych) Judgement: Good judgement present (Psych) Assessment & Plan Assessment & Plan (1) Coccygodynia: Comment: Patient states she has an appointment with a ?occupational health specialist? later in March. Patient's recent imaging of the hips and sacrum/coccyx are reviewed. Patient will be given lidocaine patches and Naprosyn for her discomfort. There is no evidence of a secondary cellulitis at this time and there is no pain elicited on examination. Code(s): M53.3 - Sacrococcygeal disorders, not elsewhere classified Plan: Lidocaine patches to be used daily and Naprosyn q.12 hours times 7-10 days. Medications: New lidocaine 4% 1 patch topical DAILY 10 days 10 ea 0RF pain - apply to low back naproxen (EC-Naprosyn) 375 mg PO BID 20 tabs 0RF Coding Level of Care Code Est Pt Level 3 (08954) Diagnoses Coccygodynia M53.3 Time Spent (min) 20
[2024-03-25 14:49] VITALS: BP 116/80; PULSE 88; TEMP 36.9; O2SAT 96; BMI 17.5
== END 2024-03-25 15:28 | disposition home or self-care (01) ==
PROVIDERS: PCP Internal Medicine; Visit Provider Physician Assistant
DX: M53.3 Sacrococcygeal disorders, not elsewhere classified (principal)
CPT/HCPCS: 99213

== ENCOUNTER 2024-04-07 08:30 | Outpatient (REF) | payer MEDICARE, SELFPAY ==
--- NOTE | ~2024-04-07 | XR_ITS ---
EXAMINATION: XR LUMBAR SPINE CLINICAL INFORMATION: Low back pain COMPARISON: MRI lumbar spine 10/18/2015 TECHNIQUE: 5 views were obtained. FINDINGS: Stable appearing mild superior endplate compression deformity of L3 vertebral body with prominent degenerative Schmorl's node. The remaining lumbar vertebral bodies demonstrate normal height. Degenerative Schmorl's node along the superior endplate of L5 is better evaluated on prior MRI. 3 mm retrolisthesis of L3 over L4. Minimal anterolisthesis of L4 over L5. Multilevel lumbar spondylosis with marginal osteophytes, endplate sclerosis and intervertebral disc space narrowing, most pronounced at L2-L3 and L3-L4. Degenerative facet arthropathy at multiple limits. On the oblique views, there is no definite evidence of pars defects. Vascular calcifications. The paraspinous soft tissues appear unremarkable. Degenerative changes of bilateral sacroiliac joints. XR/XR lumbar spine 4V min IMPRESSION: Multilevel lumbar spondylosis as detailed. Chronic appearing mild superior end plate compression deformity of L3 vertebral body. Electronically signed by: Sheldon Chamberlain MD 04/16/2024 03:03 PM EDT
== END 2024-04-07 08:31 | disposition home or self-care (01) ==
LOC: HO.HMGCX 08:30
PROVIDERS: PCP Internal Medicine; Visit Provider Nurse Practitioner Family
DX: M54.50 Low back pain, unspecified (principal)
CPT/HCPCS: 72110

== ENCOUNTER 2024-05-05 10:34 | Outpatient (AMB) | payer MEDICARE, SELFPAY ==
[2024-05-05 10:49] VITALS: BP 122/80; PULSE 95; TEMP 36.8; O2SAT 96; BMI 17.5
--- NOTE | 2024-05-05 10:49 | AM.OFFWIN_ITS ---
Intake Vital Signs 05/05/24 10:49 Height 5 ft 5 in Weight 105 lb BMI 17.5 BP 122/80 Blood Pressure Location Rt brachial Position Sitting Pulse 95 Pulse Source Pulse Oximeter Temp 98.2 F Temp Source Oral Pulse Oximetry (%) 96 Oxygen Delivery Method Room Air Intake Visit Reasons: EP tailbone pain Intake Note: pt c/o ongoing tailbone pain. Has been seen in Walk-in multiple times Patient Tobacco Use Status: Current everyday Tobacco user Allergies Penicillins Allergy (Unknown, Verified 05/05/24 10:52) Unknown Sulfa (Sulfonamide Antibiotics) Allergy (Unknown, Verified 05/05/24 10:52) Unknown Do you need a note to return to daycare/school/sports/work: No HPI HPI Comments History of Present Illness Details 78 y/o female patient who presents to [facility] walk in clinic today with c/o Tailbone pain. She has been see multiple times here for the same reason. Pt was seen and evaluated by Spine surgery clinic back in March, who recommended Physical therapy, it is not clear if patient is attending PT. [facility] Surgical History History of hysterectomy Family History Mother High cholesterol Father No problems noted. Social History Housing: House Patient Tobacco Use Status: Current everyday Tobacco user Cigarettes Per Day: 12 e-Cigarette/Vaping Use: Never Used service: No Current occupational status: retired Cognitive needs: No Hearing needs: No Vision needs: No Review of Systems Const All systems reviewed & are unremarkable except as noted in HPI and below Physical Exam Vital Signs: Last Vital Signs Temp 98.2 F 05/05/24 10:49 Pulse 95 05/05/24 10:49 BP 122/80 05/05/24 10:49 Pulse Ox 96 05/05/24 10:49 Oxygen Delivery Method Room Air 05/05/24 10:49 BMI result Body Mass Index 17.5 Const General: cooperative and comfortable Orientation/consciousness: patient oriented x3 General: Yes no CVA tenderness Back/Spine/Pelvis Back: no CVA tenderness, No ecchymosis and back tenderness Sacrum: no erythema, no swelling and tenderness midline Coccyx: no swelling and Coccyx tenderness present on direct palpation Neuro General: patient oriented x3, gait normal and moves all extremities Psych Speech and movement: Normal speech and movement present Assessment & Plan Assessment & Plan (1) Coccygodynia: Code(s): M53.3 - Sacrococcygeal disorders, not elsewhere classified Plan: Continue following up with Spine as scheduled Continue with PT as scheduled NSAIDS for pain relief. [employer] Coding Level of Care Code Est Pt Level 3 (33965) Diagnoses Coccygodynia M53.3 Time Spent (min) 15
== END 2024-05-05 11:09 | disposition home or self-care (01) ==
PROVIDERS: PCP Internal Medicine; Visit Provider Nurse Practitioner Family
DX: M53.3 Sacrococcygeal disorders, not elsewhere classified (principal)
CPT/HCPCS: 99213

== ENCOUNTER 2024-06-23 09:55 | Outpatient (AMB) | payer MEDICARE, SELFPAY ==
--- NOTE | 2024-06-23 10:01 | A.OFFPC_ITS ---
Vital Signs 3 06/23/24 10:03 Height 5 ft 5 in Weight 108 lb 2 oz BMI 18.0 BP 132/70 Blood Pressure Location Rt brachial Position Sitting Pulse 90 Pulse Source Pulse Oximeter Pulse Oximetry (%) 97 Oxygen Delivery Method Room Air Intake Visit Reasons: Tail Bone Issue Allergies Penicillins Allergy (Unknown, Verified 06/23/24 10:05) Unknown Sulfa (Sulfonamide Antibiotics) Allergy (Unknown, Verified 06/23/24 10:05) Unknown Medication List - Last Reconciled 06/23/24 by Cassandra Carvalho MD Bacillus coagulans (Digestive Advantage Probiotics-Prebiotic) cells PO Tobacco use date assessed: 06/23/24 Fall risk assessment: No Falls in past year Last assessed Fall Risk: 06/23/24 Dental Screening Dental Screen Date: 06/23/24 Did you have a dental visit in the last 12 months?: Yes Did you have a dental problem in the last 6 months where you did not have access to dental care?: No Was dental information given to patient?: Patient has dentist HPI Tail Bone Issue 2 HPI0 Details Patient is 79-year-old female came in today to be evaluated for pain coccyx area Patient has seen chiropractor in summer after that she started having pain lower back radiating to right leg Pain in right leg has resolved However pain over coccyx area continues Patient says that it feels like burning sensation between his buttocks She has been seeing a back specialist Physical therapy was ordered which did help somewhat On examination I do not see any rash between the buttocks I have sent lidocaine cream to help with burning sensation patient is experiencing Further management through the back specialist [facility] Surgical History History of hysterectomy Family History Mother High cholesterol Father No problems noted. Social History Housing: House Patient Tobacco Use Status: Current everyday Tobacco user Cigarettes Per Day: 12 e-Cigarette/Vaping Use: Never Used service: No Current occupational status: retired Cognitive needs: No Hearing needs: No Vision needs: No Questionnaire Thrive Questionnaire Date Thrive assessed: 01/10/22 AUDIT C Alcohol Use Questionnaire (AUDIT-C) 1. How often do you have a drink containing alcohol?: Never 3. How often do you have six or more drinks on one occasion?: Never Total Score: 0 Score Reviewed/Action Taken: Yes Review of Systems Const Denies chills and Denies fever(s) ENT Denies epistaxis and Denies nasal discharge Card Denies chest pain Resp Denies chest congestion, Denies cough and Denies hemoptysis GI Denies diarrhea and Denies nausea Skin/Breast Denies rash Neuro Reports no additional complaints Psych Reports no additional complaints Endo Reports no additional complaints Physical exam (Primary Care) Vital Signs: Last Vital Signs Pulse 90 06/23/24 10:03 BP 132/70 06/23/24 10:03 Pulse Ox 97 06/23/24 10:03 Oxygen Delivery Method Room Air 06/23/24 10:03 BMI result Body Mass Index 18.0 Tobacco/Smoking Status: Tobacco use Status Tobacco use date assessed 06/23/24 06/23/24 10:06 Patient Tobacco Use Status Current everyday Tobacco 06/23/24 10:02 e-Cigarette/Vaping Use Never Used 06/23/24 10:02 Thrive Assessment: Date of Thrive Assessment Date Thrive assessed 01/10/22 06/23/24 10:02 Const General: cooperative, comfortable and no acute distress Orientation/consciousness: patient oriented x3 HENMT Head: Yes normocephalic Eyes General: appearance normal, both eyes and all related structures Neck Neck: Yes supple Resp Effort & Inspection: normal respiratory effort, no cough and no stridor Back/Spine/Pelvis Back/spine/pelvis image: 2 1. Site of burning sensation, no skin rash Skin General skin exam: turgor normal Neuro General: patient oriented x3, tone normal and moves all extremities Extrem Right lower extremity: no edema Left lower extremity: no edema Coding Level of Care Code Est Pt Level 3 (46294) Diagnoses Neuralgia M79.2 Assessment & Plan Assessment & Plan (1) Neuralgia: Code(s): M79.2 - Neuralgia and neuritis, unspecified Category: Medical Plan Patient is 79-year-old female came in today to be evaluated for pain coccyx area Patient has seen chiropractor in summer after that she started having pain lower back radiating to right leg Pain in right leg has resolved However pain over coccyx area continues Patient says that it feels like burning sensation between his buttocks She has been seeing a back specialist Physical therapy was ordered which did help somewhat On examination I do not see any rash between the buttocks I have sent lidocaine cream to help with burning sensation patient is experiencing Further management through the back specialist Medications: New 2 lidocaine HCl 4% 1 appl topical BID PRN 60 grams 0RF pain
[2024-06-23 10:03] VITALS: BP 132/70; PULSE 90; O2SAT 97; BMI 18.0
== END 2024-06-23 10:29 | disposition home or self-care (01) ==
LOC: HO.HMCC 09:56
PROVIDERS: PCP Internal Medicine; Visit Provider Internal Medicine
DX: M79.2 Neuralgia and neuritis, unspecified (principal)

== ENCOUNTER → 2024-06-23 09:55 | Outpatient (BNVA) | payer MEDICARE, SELFPAY | PROVIDERS: PCP Internal Medicine; Visit Provider Internal Medicine | DX: M79.2 Neuralgia and neuritis, unspecified (principal) | CPT/HCPCS: 99212 ==

== ENCOUNTER 2024-08-04 14:24 | Outpatient (AMB) | payer MEDICARE, SELFPAY ==
--- NOTE | 2024-08-04 14:32 | AM.OFFWIN_ITS ---
Intake Vital Signs 08/04/24 14:40 Weight 108 lb BP 140/90 H Blood Pressure Location Rt brachial Position Sitting Pulse 108 H Pulse Source Pulse Oximeter Pulse Oximetry (%) 98 Oxygen Delivery Method Room Air Intake Visit Reasons: EP tailbone pain Patient Tobacco Use Status: Current everyday Tobacco user Allergies Penicillins Allergy (Unknown, Verified 06/23/24 10:05) Unknown Sulfa (Sulfonamide Antibiotics) Allergy (Unknown, Verified 06/23/24 10:05) Unknown HPI HPI Comments History of Present Illness Details This is a madina 79 year old female returning for evaluation of chronic coccydynia that she has had for the past six months. Patient denies any new injury or trauma and has been using sitz baths, lidocaine patches, Aquaphor ointment and Nystatin without relief of her symptoms. Patient describes the pain as a burning sensation that does not radiate. The patient states that she has seen a eap specialist however this specialist wants her to have a cortisone injection which she is not interested in doing. Patient is able to ambulate independently and function independently at home. FORMERLY [facility], [facility]1983 Surgical History History of hysterectomy Family History Mother High cholesterol Father No problems noted. Social History Housing: House Patient Tobacco Use Status: Current everyday Tobacco user Cigarettes Per Day: 12 e-Cigarette/Vaping Use: Never Used service: No Current occupational status: retired Cognitive needs: No Hearing needs: No Vision needs: No Review of Systems Const All systems reviewed & are unremarkable except as noted in HPI and below Reports no additional complaints Eyes Reports no additional complaints ENT Reports no additional complaints Card Reports no additional complaints Resp Reports no additional complaints GI Reports no additional complaints Reports no additional complaints Musc Details: Coccydynia Reports no additional complaints Skin/Breast Reports system reviewed and no additional complaints, except as documented Neuro Reports no additional complaints Psych Reports no additional complaints Endo Reports no additional complaints Godwin/Lymph Reports no additional complaints Aller/Immun Reports no additional complaints Physical Exam Const General: cooperative, comfortable, no acute distress, well developed, alert, awake and Physically active Nutritional Appearance: thin Orientation/consciousness: patient oriented x3 Limitations: no limitations Cardio Rate: regular rate (HR 92bpm) Rhythm: regular rhythm Back/Spine/Pelvis Pelvis: Other pelvic findings (no sciatic notch tenderness, no erythema, no induration or fluctuance) Coccyx: no tenderness and Other pelvic findings (no sciatic notch tenderness, no erythema, no induration or fluctuance) Skin General skin exam: no rashes or lesions noted Neuro General: patient oriented x3 Psych Appearance: grossly normal Insight: Good insight present (Psych) Judgement: Good judgement present (Psych) Assessment & Plan Assessment & Plan (1) Coccygodynia: Comment: Given that there has been no new injury or trauma and there is no pain elicited on examination, imaging will be deferred. Code(s): M53.3 - Sacrococcygeal disorders, not elsewhere classified Plan: Diclofenac gel t.i.d. times 2-3 weeks. Patient will follow up with her primary care provider as an outpatient. Patient states that she is interested in having her bone density re-evaluated. Medications: New diclofenac sodium 1% apply to coccyx 4 grams topical TID 100 grams 1RF Coding Level of Care Code Est Pt Level 3 (76175) Diagnoses Coccygodynia M53.3 Time Spent (min) 20
[2024-08-04 14:40] VITALS: BP 140/90; PULSE 108; O2SAT 98
== END 2024-08-04 15:22 | disposition home or self-care (01) ==
PROVIDERS: PCP Internal Medicine; Visit Provider Physician Assistant
DX: M53.3 Sacrococcygeal disorders, not elsewhere classified (principal)

== ENCOUNTER → 2024-08-04 14:24 | Outpatient (BNVA) | payer MEDICARE, SELFPAY | PROVIDERS: PCP Internal Medicine; Visit Provider Physician Assistant | DX: M53.3 Sacrococcygeal disorders, not elsewhere classified (principal) | CPT/HCPCS: 99212 ==

== ENCOUNTER → 2024-09-18 10:44 | Outpatient (BNVA) | payer MEDICARE, SELFPAY | PROVIDERS: PCP Internal Medicine; Visit Provider Internal Medicine | DX: M53.3 Sacrococcygeal disorders, not elsewhere classified (principal); R10.13 Epigastric pain | CPT/HCPCS: 96127; 99212 ==

== ENCOUNTER 2024-10-22 13:36 | Outpatient (AMB) | payer MEDICARE, SELFPAY ==
--- NOTE | 2024-10-22 13:39 | AM.OFFWIN_ITS ---
Intake Vital Signs 10/22/24 13:44 Weight 107 lb BP 138/80 Blood Pressure Location Rt brachial Position Sitting Pulse 100 Pulse Source Pulse Oximeter Temp 98.6 F Temp Source Oral Pulse Oximetry (%) 97 Oxygen Delivery Method Room Air Intake Visit Reasons: EP-uti & coccyx pain Intake Note: Patient here for burning sensation on urination that has been present for about 1 week. Patient Tobacco Use Status: Never used Tobacco Allergies Penicillins Allergy (Unknown, Verified 10/22/24 13:44) Unknown Sulfa (Sulfonamide Antibiotics) Allergy (Unknown, Verified 10/22/24 13:44) Unknown Do you need a note to return to daycare/school/sports/work: No HPI HPI Comments History of Present Illness Details 79 y/o female patient who presents to [facility] walk in clinic with c/o Dsyuria and Frequency for 1 week. H/o chronic Cystitis, was followed by Urology for some time. C/o vaginal itching - she does have h/o chronic yeast infections, was prescribed Nystatin in the past. She was referred to [employer] [facility] in the past. FORMERLY [facility] Medical History (Updated 10/22/24 @ 13:56 by Pita Horner NP) Vaginitis Surgical History History of hysterectomy Family History Mother High cholesterol Father No problems noted. Social History Housing: House Patient Tobacco Use Status: Never used Tobacco Cigarettes Per Day: 12 e-Cigarette/Vaping Use: Never Used service: No Current occupational status: retired Cognitive needs: No Hearing needs: No Vision needs: No Review of Systems Const All systems reviewed & are unremarkable except as noted in HPI and below Physical Exam Vital Signs: Last Vital Signs Temp 98.6 F 10/22/24 13:44 Pulse 100 10/22/24 13:44 BP 138/80 10/22/24 13:44 Pulse Ox 97 10/22/24 13:44 Oxygen Delivery Method Room Air 10/22/24 13:44 Const General: cooperative and no acute distress Nutritional Appearance: underweight Orientation/consciousness: patient oriented x3 Other: Deferred Pelvic Exam General: Yes no CVA tenderness Back/Spine/Pelvis Back: no CVA tenderness Neuro General: patient oriented x3, gait normal and moves all extremities Psych Speech and movement: Normal speech and movement present Results AMB Urinalysis, Automated UA Leukoctes 0 Kellee/uL Last Edit by Cherelle Chen [facility]CM on 10/22/24 14:07 UA Nitrite Negative Last Edit by Chreelle Chen [facility] on 10/22/24 14:07 UA Urobilinogen 0.2 mg/dL Last Edit by Cherelle Chen [facility] on 10/22/24 14:07 UA Protein 0 mg/dL Last Edit by AngelaSheldon Chen [facility] on 10/22/24 14:07 UA pH 6.0 Last Edit by Cherelle Chen [facility] on 10/22/24 14:07 UA Blood 0 Alexander/uL Last Edit by Cherelle Chen [facility] on 10/22/24 14:07 UA Specific Alston 1.010 Last Edit by Cherelle Chen [facility] on 10/22/24 14:07 UA Ketone Negative Last Edit by Cherelle Chen [facility] on 10/22/24 14:07 UA Bilirubin 0 mg/dL Last Edit by Cherelle Chen [facility] on 10/22/24 14:07 UA Glucose 0 mg/dL Last Edit by AngelaSheldon Chen [facility] on 10/22/24 14:07 Assessment & Plan Assessment & Plan (1) Urinary frequency: Code(s): R35.0 - Frequency of micturition Plan: In office Urinalysis negative. Advise to hydrate well with plenty of fluids (brooks Water). (2) Dysuria: Code(s): R30.0 - Dysuria Plan: In office Urinalysis negative. Advise to hydrate well with plenty of fluids (brooks Water). (3) Vaginitis: Code(s): N76.0 - Acute vaginitis Qualifiers: Chronicity: chronic Qualified Code(s): N76.1 - Subacute and chronic vaginitis Plan: Ordered Fluconazole. Urology symptoms could be attributed to Vaginitis. Medications: New fluconazole TAKE 1 TABLET TODAY, MAY REPEAT SECOND DOSE IN 72 HOURS. 150 mg PO DIRECTED 7 tabs 0RF N76.1 - Subacute and chronic vaginitis Coding Level of Care Code Est Pt Level 4 (46202) Diagnoses Urinary frequency R35.0 Dysuria R30.0 Chronic vaginitis N76.1 Chronicity: chronic Time Spent (min) 20
[2024-10-22 13:44] VITALS: BP 138/80; PULSE 100; TEMP 37; O2SAT 97
== END 2024-10-22 14:29 | disposition home or self-care (01) ==
PROVIDERS: PCP Internal Medicine; Visit Provider Nurse Practitioner Family
DX: R35.0 Frequency of micturition (principal); R30.0 Dysuria; N76.1 Subacute and chronic vaginitis; Z13.9 Encounter for screening, unspecified

== ENCOUNTER → 2024-10-22 13:36 | Outpatient (BNVA) | payer MEDICARE, SELFPAY | PROVIDERS: PCP Internal Medicine | DX: R35.0 Frequency of micturition (principal); R30.0 Dysuria; N76.1 Subacute and chronic vaginitis | CPT/HCPCS: 81003; 99212 ==

== ENCOUNTER 2024-12-02 08:26 | Outpatient (AMB) | payer MEDICARE, SELFPAY ==
[2024-12-02 08:32] VITALS: BP 124/64; PULSE 82; RESP 18; TEMP 36.5; O2SAT 97; BMI 18.1
--- NOTE | 2024-12-02 08:32 | MHC.PC.OV ---
Vital Signs 12/02/24 08:32 Height 5 ft 5 in Weight 109 lb BMI 18.1 BP 124/64 Blood Pressure Location Rt brachial Position Sitting Respiration 18 Pulse 82 Pulse Source Pulse Oximeter Temp 97.7 F Temp Source Oral Pulse Oximetry (%) 97 Oxygen Delivery Method Room Air Intake Visit Reasons: 2 months F/U Allergies Penicillins Allergy (Unknown, Verified 12/02/24 08:34) Unknown Sulfa (Sulfonamide Antibiotics) Allergy (Unknown, Verified 12/02/24 08:34) Unknown Medication List - Last Reconciled 12/02/24 by Cassandra Carvalho MD Bacillus coagulans (Digestive Advantage Probiotics-Prebiotic) cells PO diclofenac sodium 1% 4 grams topical TID diclofenac sodium 3% 1 appl topical BID omeprazole 20 mg PO DAILY Tobacco use date assessed: 12/02/24 Fall risk assessment: No Falls in past year Last assessed Fall Risk: 12/02/24 Dental Screening Dental Screen Date: 09/18/24 HPI 2 months F/U HPI Details History - The patient is an 79-year-old female presenting with pain and irritation related to her tailbone. - The coccydynia has been ongoing for about a year, with persistent burning discomfort. - Despite using a doughnut cushion, the tailbone pain remains problematic. The application of cream provides temporary relief. - There are no visible sores, and there is no itchiness in the area. Previous chiropractic treatment may have exacerbated nerve issues contributing to the pain. - The patient is aware of her osteoporosis diagnosis from a 2021 bone density assessment, influencing her concerns about skeletal pain. - The patient also has recurrent herpes labialis episodes. - These occur a couple of times monthly and began several months ago. - They appear as non-painful cold sores that are sore to the touch. - The patient has attempted topical treatments without success. Problem List - Vaginal Itching (Resolved) - Coccydynia - Herpes Labialis - Osteoporosis Patient Instructions - Use a diaper rash cream as needed to help prevent irritation of the tailbone. - Continue using the doughnut cushion to reduce pressure while sitting. - Begin taking vitamin D 1000 units daily over the counter to support bone health. - For cold sore flare-ups, take the prescribed oral medication valacyclovir 500 mg as directed: 2 tablets in the morning and 2 tablets 12 hours later for one day. Review of Systems - General: No fever no chills - Neurological: No headaches no dizziness - Ear nose throat: No sore throat no hearing difficulty no ear pain - Cardiovascular: No syncope, no chest pain, no palpitations - Gastrointestinal: No nausea vomiting or diarrhea - Endocrine: No polyuria polydipsia no heat intolerance - Genitourinary: No dysuria , no blood in urine Physical Exam General: No acute distress HEENT: Cold sores noted lower lip Neck: Supple Respiratory system: Able to talk in full sentences, no audible wheeze Cardiovascular: S1-S2 regular in rate and rhythm Gastrointestinal: No pain with palpation Back: Coccyx area without any sores or rashes Extremities: No new findings 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 Social History Housing: House Patient Tobacco Use Status: Current everyday Tobacco user Cigarettes Per Day: 12 e-Cigarette/Vaping Use: Never Used service: No Current occupational status: retired Cognitive needs: No Hearing needs: No Vision needs: No Questionnaire Thrive Questionnaire Date Thrive assessed: 01/10/22 SABINA-7 AMB Questionnaire SABINA-7 Date SABINA - 7 assessed: 09/18/24 Source: Developed by Drs. Scotty Machado, Whitley Hawkins, Antelmo Hoffman and colleagues, with an educational lolly from [employer]. Physical exam (Primary Care) Vital Signs: Last Vital Signs Temp 97.7 F 12/02/24 08:32 Pulse 82 12/02/24 08:32 Resp 18 12/02/24 08:32 BP 124/64 12/02/24 08:32 Pulse Ox 97 12/02/24 08:32 Oxygen Delivery Method Room Air 12/02/24 08:32 BMI result Body Mass Index 18.1 Tobacco/Smoking Status: Tobacco use Status Tobacco use date assessed 12/02/24 12/02/24 08:36 Patient Tobacco Use Status Current everyday Tobacco 12/02/24 08:36 e-Cigarette/Vaping Use Never Used 12/02/24 08:36 Thrive Assessment: Date of Thrive Assessment Date Thrive assessed 01/10/22 12/02/24 08:36 Coding Level of Care Code Est Pt Level 4 (47308) Complex EM visit Add On G2211 Diagnoses Coccygodynia M53.3 Abdominal bloating R14.0 Recurrent herpes labialis B00.1 Age-related osteoporosis without current pathological fracture M81.0 Osteoporosis type: age-related Presence of current pathological fracture: without current pathological fracture 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; 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 Assessment & Plan Assessment & Plan (1) Coccygodynia: Code(s): M53.3 - Sacrococcygeal disorders, not elsewhere classified Category: Medical (2) Abdominal bloating: Code(s): R14.0 - Abdominal distension (gaseous) Category: Medical (3) Recurrent herpes labialis: Code(s): B00.1 - Herpesviral vesicular dermatitis Category: Medical (4) Osteoporosis: Code(s): M81.0 - Age-related osteoporosis without current pathological fracture Category: Medical Qualifiers: Osteoporosis type: age-related Presence of current pathological fracture: without current pathological fracture Qualified Code(s): M81.0 - Age-related osteoporosis without current pathological fracture (5) Kyphosis due to osteoporosis: Code(s): M81.0 - Age-related osteoporosis without current pathological fracture; M40.10 - Other secondary kyphosis, site unspecified Category: Medical Plan History - The patient is an 79-year-old female presenting with pain and irritation related to her tailbone. - The coccydynia has been ongoing for about a year, with persistent burning discomfort. - Despite using a doughnut cushion, the tailbone pain remains problematic. The application of cream provides temporary relief. - There are no visible sores, and there is no itchiness in the area. Previous chiropractic treatment may have exacerbated nerve issues contributing to the pain. - The patient is aware of her osteoporosis diagnosis from a 2021 bone density assessment, influencing her concerns about skeletal pain. - The patient also has recurrent herpes labialis episodes. - These occur a couple of times monthly and began several months ago. - They appear as non-painful cold sores that are sore to the touch. - The patient has attempted topical treatments without success. Problem List - Vaginal Itching (Resolved) - Coccydynia - Herpes Labialis - Osteoporosis Patient Instructions - Use a diaper rash cream as needed to help prevent irritation of the tailbone. - Continue using the doughnut cushion to reduce pressure while sitting. - Begin taking vitamin D 1000 units daily over the counter to support bone health. - For cold sore flare-ups, take the prescribed oral medication valacyclovir 500 mg as directed: 2 tablets in the morning and 2 tablets 12 hours later for one day. Medications: New valacyclovir 1,000 mg (2 x 500 mg) PO Q12H 1 day 4 tabs 0RF
== END 2024-12-02 09:04 | disposition home or self-care (01) ==
LOC: HO.HMCC 08:27
PROVIDERS: PCP Internal Medicine; Visit Provider Internal Medicine
DX: M53.3 Sacrococcygeal disorders, not elsewhere classified (principal); R14.0 Abdominal distension (gaseous); B00.1 Herpesviral vesicular dermatitis; M81.0 Age-related osteoporosis without current pathological fracture; M40.10 Other secondary kyphosis, site unspecified

== ENCOUNTER → 2024-12-02 08:26 | Outpatient (BNVA) | payer MEDICARE, SELFPAY | PROVIDERS: PCP Internal Medicine; Visit Provider Internal Medicine | DX: M53.3 Sacrococcygeal disorders, not elsewhere classified (principal); R14.0 Abdominal distension (gaseous); B00.1 Herpesviral vesicular dermatitis; M81.0 Age-related osteoporosis without current pathological fracture; M40.10 Other secondary kyphosis, site unspecified | CPT/HCPCS: 99212 ==

== ENCOUNTER 2025-02-05 07:59 | Outpatient (AMB) | payer MEDICARE, SELFPAY ==
--- OUTSIDE RECORDS SUMMARY | 2025-02-05 08:00 | XMS_ITS | Patient Health Record ---
[facility] Address [address] [place] [address] Care Team Providers Care Rabbit Breeder Name Role Phone Hesham Thomason MD Primary Care Provider Unavaila mikie Trish Real Unavailable [phone] Allergies Allergen (clinical drug ingredient) Drug/Non Drug Allergy documented on EMR Reaction Allergy Type Onset Date Status sulfa rash Drug Allergy Active Keflex rash Drug Allergy Active Reason For Referral No Information Medications Medication SIG (Take, Route, Frequency, Duration) Notes Start Date End Date Status Multivitamin Active Probiotic Active Social History Tobacco Use: Social History Observation Description Date Details (start date - stop date) Current Smoker NA - NA Tobacco Use/Smoking Question Answer Notes Are you a: current smoker When did you start smoking? 16 yrs old How often do you smoke cigarettes? every day How many cigarettes a day do you smoke? 11-20 How soon after you wake up d o you smoke your first cigarette? 6-30 minutes Are you interested in quitting? Thinking about q uitting Tobacco use other than smoking: Question Answer Notes Are you an other tobacco user? No Problems Problem Type SNOMED Code ICD Code Onset Dates Problem Status W/U Status Risk Notes Problem Acquired hammer toe of right foot (3557121875618 105) Other hammer toe(s) (acquired), right foot (M20.41) Active confirmed Problem Acquired hammer toe of left foot (1095563539774 103) Other hammer toe(s) (acquired), left foot (M20.42) Active confirmed Plan Of Treatment Pending Test Test Name Order Date X ray : Foot, right 3V 09/08/2012 [id number] NAIL, 1-5 04/19/2014 [id number] NAIL, 1-5 07/26/2014 [id number] NAIL, -11/16/2015 [id number] NAIL, -09/30/2017 [id number] NAIL, -09/08/2012 Insurance Providers Payer Name Payer Address Payer Phone Subscriber Number Group Number Insured Name Patient Relationship to Insured Coverage Start Date Coverage End Date Medicare National [employer] [address] [place] [phone] [id number] Vy Acuña Self - patient is the insured [employer] [address] [place] [address] [phone] [id number] Vy Acuña Self - patient is the insured Medical (General) History Medical History History ICD Code psoriasis measles mumps chicken pox
--- NOTE | 2025-02-05 08:07 | AM.OFFWIN_ITS ---
Intake Vital Signs 02/05/25 08:09 Height 5 ft 5 in Weight 112 lb BMI 18.6 BP 140/90 H Blood Pressure Location Rt brachial Position Sitting Pulse 88 Pulse Source Pulse Oximeter Pulse Oximetry (%) 98 Oxygen Delivery Method Room Air Intake Visit Reasons: EP rectum pain Intake Note: Patient here for buttocks/rectum pain and burning sensation. Patient Tobacco Use Status: Current everyday Tobacco user Allergies Penicillins Allergy (Unknown, Verified 02/05/25 08:12) Unknown Sulfa (Sulfonamide Antibiotics) Allergy (Unknown, Verified 02/05/25 08:12) Unknown Do you need a note to return to daycare/school/sports/work: No HPI HPI Comments History of Present Illness Details History of Present Illness - The patient is an 79-year-old female p resenting with pain in the tailbone and suspected sciatica for 2 years. - Tailbone pain is exacerbated by sittin g, with no fractures on imaging. - Pain has persisted for a year and a mathew lf, with multiple clinic visits. - Mulitple chiropractic treatments may h ave aggravated the condition. - Sharp, shooting leg pain consistent wi th sciatica worsened after chiropractic manipulation and ultrasound therapy. Worse when sitting. Also c/o chapping or chafing on anus area. - History of right hip injury from a pre vious incident involving a shovel. - No medications used for pain managemen t; prefers natural remedies and ice application. Physical Exam General: Cooperative, healthy appearing, comfortable, no acute distress and well developed Orientation: Patient oriented x3 Limitations: No limitations Head: Normal to inspection Ears: Hearing grossly normal bilaterally Nose: Normal External nose present Face and sinus: Normal facial exam Eyes: Appearance normal, both eyes and all related structures Neck: Normal visual inspection and Yes full ROM Respiratory: Normal respiratory effort and able to speak in complete sentences. Skin: No rashes or lesions noted Back/spine: no TTP cervical, thoracic or lumbar spine. negative straight leg test bilaterally Neuro: Patient oriented x3, gait normal Extremities: Normal to inspection [facility] Medical History Vaginitis Surgical History History of hysterectomy Family History Mother High cholesterol Father No problems noted. Social History Housing: House Patient Tobacco Use Status: Current everyday Tobacco user Cigarettes Per Day: 12 e-Cigarette/Vaping Use: Never Used service: No Current occupational status: retired Cognitive needs: No Hearing needs: No Vision needs: No Review of Systems Const All systems reviewed & are unremarkable except as noted in HPI and below Physical Exam Vital Signs: Last Vital Signs Pulse 88 02/05/25 08:09 BP 140/90 H 02/05/25 08:09 Pulse Ox 98 02/05/25 08:09 Oxygen Delivery Method Room Air 02/05/25 08:09 BMI result Body Mass Index 18.6 Assessment & Plan Assessment & Plan (1) Coccygodynia: Code(s): M53.3 - Sacrococcygeal disorders, not elsewhere classified Plan: Plan - Recommend physical therapy for musculoskeletal pain management, focusing on the coccyx and sciatica. - Suggest continuation of ice application or Biofreeze for pain relief. - Advise against further chiropractic manipulation due to previous exacerbation of symptoms. Patient was informed and verbally consented to the use of an ambient scribe for clinic note documentation during this visit. Orders: Orders PT Evaluation and Treatment Today M53.3 - Sacrococcygeal disorders, not elsewhere classified Coding Level of Care Code Est Pt Level 3 (48382) Diagnoses Coccygodynia M53.3
[2025-02-05 08:09] VITALS: BP 140/90; PULSE 88; O2SAT 98; BMI 18.6
== END 2025-02-05 08:42 | disposition home or self-care (01) ==
PROVIDERS: PCP Internal Medicine; Visit Provider Physician Assistant
DX: M53.3 Sacrococcygeal disorders, not elsewhere classified (principal)

== ENCOUNTER → 2025-02-05 07:59 | Outpatient (BNVA) | payer MEDICARE, SELFPAY | PROVIDERS: PCP Internal Medicine; Visit Provider Physician Assistant | DX: M53.3 Sacrococcygeal disorders, not elsewhere classified (principal) | CPT/HCPCS: 99212 ==

== ENCOUNTER 2025-04-09 08:27 | Outpatient (AMB) | payer MEDICARE, SELFPAY ==
--- NOTE | 2025-04-09 08:30 | AM.OFFVISMDC ---
Intake Vital Signs 04/09/25 08:31 Height 5 ft 5 in Weight 111 lb BMI 18.5 BP 138/82 Blood Pressure Location Lt brachial Position Sitting Pulse 86 Pulse Source Pulse Oximeter Pulse Oximetry (%) 96 Intake Visit Reasons: SWV G0439 Accompanied by: Self / Same As Patient Allergies Penicillins Allergy (Unknown, Verified 04/09/25 08:31) Unknown Sulfa (Sulfonamide Antibiotics) Allergy (Unknown, Verified 04/09/25 08:31) Unknown Medication List - Last Reconciled 04/09/25 by Cassandra Carvalho MD Bacillus coagulans (Digestive Advantage Probiotics-Prebiotic) cells PO diclofenac sodium 3% 1 appl topical BID lidocaine 5% 1 appl topical BID PRN omeprazole 20 mg PO DAILY valacyclovir 1,000 mg (2 x 500 mg) PO Q12H 1 day Do you need a note to return to daycare/school/sports/work: No HPI [facility] G0439 HPI Details Chief Complaint Longitudinal follow-up and Medicare wellness visit History of Present Illness The patient is an 79-year-old female presenting with discomfort related to her tailbone. Hamstring and tailbone discomfort: - Patient reports ongoing physical therapy with improvement noted at a specific location, unlike previous non-beneficial sessions in [place]. - The current physical therapist suggested weak hamstrings may be affecting the tailbone. - Discomfort described as less frequent burning sensations. - Difficulty performing some physical activities due to weakness. Medical History: - Prediabetes - Osteoporosis - Hemorrhoids - Occasional vaginal itching and burning - Wax accumulation in ears - continued to smoke blaming stress Social History: - Lives alone, no more family as siblings and others have passed - No children - Reports engaging in physical therapy regularly - Reports smoking due to stress - Drinks plant-based protein drinks - Describes sweating and hot flashes possibly related to weather Family History: - All family have , includes mention of brother and nephew - No known children Diagnostic Results: - Previous bone density showed osteoporosis Problem List - discomfort tailbone - Prediabetes - Osteoporosis - Earwax accumulation Patient Instructions - Continue physical therapy as it is helping - Check with the insurance about coverage for extended physical therapy sessions - Consider changing type of underwear and ensure use of cotton to alleviate vaginal itching - Plan to have fasting labs done for further evaluation - Use Debrox ear drops at night to help with earwax accumulation - Avoid eating before the fasting lab appointment - Maintain engagement in physical activity Review of Systems - General: No fever no chills - Neurological: No headaches no dizziness - Ear nose throat: No sore throat no hearing difficulty no ear pain - Cardiovascular: No syncope, no chest pain, no palpitations - Gastrointestinal: No nausea vomiting or diarrhea - Endocrine: No polyuria polydipsia no heat intolerance - Genitourinary: No dysuria , no blood in urine Physical Exam General: No acute distress HEENT: Ear wax present, right ear totally blocked Neck: Supple Respiratory system: Able to talk in full sentences, no audible wheeze Cardiovascular: S1-S2 regular in rate and rhythm Gastrointestinal: No pain Extremities: No new findings [employer]: Alert awake oriented x3 motor sensory intact Skin: Normal turgor, sweating under armpits noted HPI Comments History of Present Illness Details AWV Medical/social history reviewed Past medical history reviewed [place] of care / care team list updated Surgical/ hospitalization history reviewed Current medications including OTC and supplements reviewed Family history reviewed Tobacco controlled form updated Alcohol use form updated Illicit drug use in social history reviewed Current diagnosis of depression ?screening updated Appropriate PHQ 2/PHQ-9 completed . Vital signs reviewed Alcohol tobacco drug use reviewed and discussed . MMSE completed . ? Fall risk: ?Assessed Fall history: ?None Have you had any falls with injury in the past year?? No Have you had 2 or more falls in the past year?? No Fall risk assessment completed Home safety discussed with the patient Functional ability assessed and discussed and documented Activities of daily living reviewed and appropriate actions taken . HRA filled out by the patient and reviewed by provider and scanned . Appropriate written screening schedule established . Any health advise needed provided . Advance care planning discussed with the patient , both healthcare proxy and MOLST forms discussed patient would like to take them home and think about it. Examination IPPE/AWE: Balance intact Romberg intact Tandem walk intact walk-in turn intact rise from sit to stand intact . ?Hearing ?whisper test pass . Medication list reviewed, patient is stable on medications All other providers patient is seeing discussed and noted . [facility] Medical History Vaginitis Surgical History History of hysterectomy Family History Mother High cholesterol Father No problems noted. Social History Housing: House Patient Tobacco Use Status: Current everyday Tobacco user Cigarettes Per Day: 12 e-Cigarette/Vaping Use: Never Used service: No Current occupational status: retired Cognitive needs: No Hearing needs: No Vision needs: No Questionnaire Medicare Wellness Checkup What is your age?: 79 or older What gender do you identify with?: female During the past 4 weeks, how much have you been bothered by emotional problems such as feeling anxious, depressed, irritable, sad or downhearted, and blue?: slightly During the past 4 weeks, has your physical & emotional health limited your social activities with family, friends, neighbors, or groups?: not at all During the past 4 weeks, how much bodily pain have you generally had?: very mild pain During the past 4 weeks, was someone available to help you if you needed & wanted help?: no, not at all During the past 4 weeks, what was the hardest physical activity you could do for at least 2 minutes?: moderate Can you get to places out of walking distance without help? (For eg., can you travel alone on buses, taxis or drive your car?): Yes Can you go shopping for groceries or clothes without someone's help?: Yes Can you prepare your own meals?: Yes Can you do your housework without help?: Yes Because of any health problems, do you need the help of another person with your personal care needs such as eating, bathing, dressing or getting around the house?: No Can you handle your own money without help?: Yes During the past 4 weeks, how would you rate your health in general?: fair During the past 4 weeks how have things been going for you?: pretty well Are you having difficulties driving your car?: no Do you always fasten your seat belt when you are in a car?: yes, sometimes During past 4 weeks, have you been bothered by the following: never: Falling or dizzy when standing up, Sexual problems? and Problems using the telephone? and sometimes: Trouble eating well?, Teeth or denture problems? and Tiredness or fatigue? Have you fallen 2 or more times in the past year?: No Are you afraid of falling?: Yes Are you a smoker?: yes, but I'm not ready to quit During the past 4 weeks, how many drinks of wine, beer, or other alcoholic beverages did you have?: no alcohol at all Do you exercise for about 20 minutes 3 or more times a week?: yes, some of the time Have you been given information to help with the following?: no: Hazards in your house that might hurt you? and no: Keeping track of your medications? How often do you have trouble taking medicines the way you have been told to take them?: I always take medicine as prescribed How confident are you that you can control & manage most of your health problems?: very confident What is your race?: White Mini Mental State Exam (MMSE) Orientation What is the (year) (season) (date) (day) (month)?: year, season, date, day and month Where are we (state) (county) (town or city) (hospital) (floor)?: state, county, town or city, hospital/clinic and floor Score Score: 10 Activity of Daily Living Bathing - sponge bath, tub bath or shower: receives no assistance (gets in/out by self, if usual bathing means Dressing - getting clothes from closets & drawers, including inner/outer garments & fasteners.: gets clothes & gets completely dressed without help Toileting - going to the 'toilet room' for urine/bowel elimination & cleaning self/arranging clothes: goes to toilet room, cleans self, arranges clothes without help Transfer: moves in & out of bed and chair without help (may use support object) Continence: controls urination/bowel movements completely by self Feeding: feeds self without help Total Score: 0 Information obtained from: patient Using telephone: independent Traveling: independent Shopping: independent Preparing meals: independent Housework: independent Taking medicine: independent Managing money: independent PHQ-9 Over the last 2 weeks, how often have you been bothered by any of the following problems? 1. Little interest or pleasure in doing things: nearly every day 2. Feeling down, depressed, or hopeless: nearly every day 3. Trouble falling or staying asleep, or sleeping too much: nearly every day 4. Feeling tired or having little energy: nearly every day 5. Poor appetite or overeating: more than half the days 6. Feeling bad about yourself - or that you are a failure or have let yourself or your family down: more than half the days 7. Trouble concentrating on things, such as reading the newspaper or watching television: not at all 8. Moving or speaking so slowly that other people could have noticed. Or the opposite - being so fidgety or restless that you have been moving around a lot more than usual: not at all 9. Thoughts that you would be better off or of hurting yourself in some way: not at all Total score: 16 Depression Screening Interpretation: Positive Depression Screening Done: Yes 06989 - PHQ-9 Billing: Yes Source: Developed by Drs. Scotty Machado, Whitley Hawkins, Antelmo Hoffman and colleagues, with an educational lolly from [employer] Physical Exam Vital Signs: Last Vital Signs Pulse 86 04/09/25 08:31 BP 138/82 04/09/25 08:31 Pulse Ox 96 04/09/25 08:31 BMI result Body Mass Index 18.5 Assessment & Plan Assessment & Plan (1) Medicare annual wellness visit, subsequent: Code(s): Z00.00 - Encounter for general adult medical examination without abnormal findings (2) Decreased GFR: Code(s): R94.4 - Abnormal results of kidney function studies (3) Hemorrhoids, external: Code(s): K64.4 - Residual hemorrhoidal skin tags (4) Tobacco use disorder: Code(s): F17.200 - Nicotine dependence, unspecified, uncomplicated (5) Osteoporosis: Code(s): M81.0 - Age-related osteoporosis without current pathological fracture Qualifiers: Osteoporosis type: age-related Presence of current pathological fracture: without current pathological fracture Qualified Code(s): M81.0 - Age-related osteoporosis without current pathological fracture (6) Lipid disorder: Code(s): E78.9 - Disorder of lipoprotein metabolism, unspecified (7) Pre-diabetes: Code(s): R73.03 - Prediabetes (8) Anxiety, generalized: Code(s): F41.1 - Generalized anxiety disorder (9) 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 Hamstring and tailbone discomfort: - Patient reports ongoing physical therapy with improvement noted at a specific location, unlike previous non-beneficial sessions in [place]. - The current physical therapist suggested weak hamstrings may be affecting the tailbone. - Discomfort described as less frequent burning sensations. - Difficulty performing some physical activities due to weakness. Medical History: - Prediabetes - Osteoporosis - Hemorrhoids - Occasional vaginal itching and burning - Wax accumulation in ears - continued to smoke blaming stress Social History: - Lives alone, no more family as siblings and others have passed - No children - Reports engaging in physical therapy regularly - Reports smoking due to stress - Drinks plant-based protein drinks - Describes sweating and hot flashes possibly related to weather Family History: - All family have , includes mention of brother and nephew - No known children Diagnostic Results: - Previous bone density showed osteoporosis Problem List - discomfort tailbone - Prediabetes - Osteoporosis - Earwax accumulation - nephropathy - excessive wax buildup right ear Patient Instructions - Continue physical therapy as it is helping - Check with the insurance about coverage for extended physical therapy sessions - Consider changing type of underwear and ensure use of cotton to alleviate vaginal itching - Plan to have fasting labs done for further evaluation - Use Debrox ear drops at night to help with earwax accumulation - Avoid eating before the fasting lab appointment - Maintain engagement in physical activity Orders: Orders Vitamin D 25-OH (D2 and D3) Today E78.9 - Disorder of lipoprotein metabolism, unspecified, F17.200 - Nicotine dependence, unspecified, uncomplicated, F41.1 - Generalized anxiety disorder, K64.4 - Residual hemorrhoidal skin tags, M40.10 - Other secondary kyphosis, site unspecified, M53.3 - Sacrococcygeal disorders, not elsewhere classified, M81.0 - Age-related osteoporosis without current pathological fracture, R73.03 - Prediabetes, R94.4 - Abnormal results of kidney function studies Vitamin B12 Today E78.9 - Disorder of lipoprotein metabolism, unspecified, F17.200 - Nicotine dependence, unspecified, uncomplicated, F41.1 - Generalized anxiety disorder, K64.4 - Residual hemorrhoidal skin tags, M40.10 - Other secondary kyphosis, site unspecified, M53.3 - Sacrococcygeal disorders, not elsewhere classified, M81.0 - Age-related osteoporosis without current pathological fracture, R73.03 - Prediabetes, R94.4 - Abnormal results of kidney function studies TSH reflex Free T4 Today E78.9 - Disorder of lipoprotein metabolism, unspecified, F17.200 - Nicotine dependence, unspecified, uncomplicated, F41.1 - Generalized anxiety disorder, K64.4 - Residual hemorrhoidal skin tags, M40.10 - Other secondary kyphosis, site unspecified, M53.3 - Sacrococcygeal disorders, not elsewhere classified, M81.0 - Age-related osteoporosis without current pathological fracture, R73.03 - Prediabetes, R94.4 - Abnormal results of kidney function studies Lipid Panel Today E78.9 - Disorder of lipoprotein metabolism, unspecified, F17.200 - Nicotine dependence, unspecified, uncomplicated, F41.1 - Generalized anxiety disorder, K64.4 - Residual hemorrhoidal skin tags, M40.10 - Other secondary kyphosis, site unspecified, M53.3 - Sacrococcygeal disorders, not elsewhere classified, M81.0 - Age-related osteoporosis without current pathological fracture, R73.03 - Prediabetes, R94.4 - Abnormal results of kidney function studies Comprehensive [place]. Panel Fast Today E78.9 - Disorder of lipoprotein metabolism, unspecified, F17.200 - Nicotine dependence, unspecified, uncomplicated, F41.1 - Generalized anxiety disorder, K64.4 - Residual hemorrhoidal skin tags, M40.10 - Other secondary kyphosis, site unspecified, M53.3 - Sacrococcygeal disorders, not elsewhere classified, M81.0 - Age-related osteoporosis without current pathological fracture, R73.03 - Prediabetes, R94.4 - Abnormal results of kidney function studies Complete Blood Count Auto Diff Today E78.9 - Disorder of lipoprotein metabolism, unspecified, F17.200 - Nicotine dependence, unspecified, uncomplicated, F41.1 - Generalized anxiety disorder, K64.4 - Residual hemorrhoidal skin tags, M40.10 - Other secondary kyphosis, site unspecified, M53.3 - Sacrococcygeal disorders, not elsewhere classified, M81.0 - Age-related osteoporosis without current pathological fracture, R73.03 - Prediabetes, R94.4 - Abnormal results of kidney function studies Hemoglobin A1c Today E78.9 - Disorder of lipoprotein metabolism, unspecified, F17.200 - Nicotine dependence, unspecified, uncomplicated, F41.1 - Generalized anxiety disorder, K64.4 - Residual hemorrhoidal skin tags, M40.10 - Other secondary kyphosis, site unspecified, M53.3 - Sacrococcygeal disorders, not elsewhere classified, M81.0 - Age-related osteoporosis without current pathological fracture, R73.03 - Prediabetes, R94.4 - Abnormal results of kidney function studies Quality Reporting (2019) Depression/Bipolar (159/160/161/177) PHQ-9: Total score: 16 Coding Level of Care Code Medicare Subsequent (G0439) Est Pt Level 4 (45748) Diagnoses Medicare annual wellness visit, subsequent Z00.00 Decreased GFR R94.4 Hemorrhoids, external K64.4 Tobacco use disorder F17.200 Age-related osteoporosis without current pathological fracture M81.0 Osteoporosis type: age-related Presence of current pathological fracture: without current pathological fracture Lipid disorder E78.9 Pre-diabetes R73.03 Anxiety, generalized F41.1 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; M40.10 Coccygodynia M53.3 Excessive wax in right ear H61.21 CPT Codes Advance Care Planning - Time spent: 1-15 minutes, not on file ([id number]) Additional Codes PHQ-9 - 24021 - PHQ-9 Billing: Yes ([id number]) Advance Care Planning Forms completed: Health Care Proxy and MOLST Time spent: 1-15 minutes, not on file Actual minutes spent: 10 (Paperwork discussed with the patient and explained she will return with completed paperwork next visit)
[2025-04-09 08:31] VITALS: BP 138/82; PULSE 86; O2SAT 96; BMI 18.5
--- OUTSIDE RECORDS SUMMARY | 2025-04-09 08:36 | XMS_ITS | Patient Health Record ---
[facility] Address [address] [place] [address] Care Team Providers Care Avionics Systems Engineer Name Role Phone Hesham Thomason MD Primary Care Provider Unavaila mikie Trish Real Unavailable [phone] Allergies Allergen (clinical drug ingredient) Drug/Non Drug [...] Problem Acquired hammer toe of right foot ([id number] 105) Other hammer toe(s) (acquired), right foot (M20.41) Active confirmed Problem Acquired hammer toe of left foot ([id number] 103) Other hammer toe(s) (acquired), left foot (M20.42) Active confirmed Plan Of Treatment Pending Test Test Name Order Date X ray : Foot, right 3V 09/08/2012 [id number] NAIL, 1-5 04/19/2014 [id number] NAIL, 1-5 07/26/2014 [id number] NAIL, -11/16/2015 [id number] NAIL, -09/30/2017 [id number] NAIL, -09/08/2012 Insurance Providers Payer Name Payer Address Payer Phone Subscriber Number Group Number Insured Name Patient Relationship to Insured Coverage Start Date Coverage End Date Medicare [employer] [address] [place] [phone] [id number] Vy Acuña Self - patient is the insured [employer] [address] [place] [address] [phone] [id number] Vy Acuña Self - patient is the insured Medical (General) History Medical History History ICD Code psoriasis measles mumps chicken pox
== END 2025-04-09 08:56 | disposition home or self-care (01) ==
LOC: HO.HMCC 08:28
PROVIDERS: PCP Internal Medicine; Visit Provider Internal Medicine
DX: Z00.00 Encounter for general adult medical examination without abnormal findings (principal); R94.4 Abnormal results of kidney function studies; M40.10 Other secondary kyphosis, site unspecified; H61.21 Impacted cerumen, right ear; K64.4 Residual hemorrhoidal skin tags; F17.200 Nicotine dependence, unspecified, uncomplicated; M81.0 Age-related osteoporosis without current pathological fracture; E78.9 Disorder of lipoprotein metabolism, unspecified; R73.03 Prediabetes; F41.1 Generalized anxiety disorder; M53.3 Sacrococcygeal disorders, not elsewhere classified

== ENCOUNTER → 2025-04-09 08:27 | Outpatient (BNVA) | payer MEDICARE, SELFPAY | PROVIDERS: PCP Internal Medicine; Visit Provider Internal Medicine | DX: Z00.00 Encounter for general adult medical examination without abnormal findings (principal); R94.4 Abnormal results of kidney function studies; K64.4 Residual hemorrhoidal skin tags; M81.0 Age-related osteoporosis without current pathological fracture; E78.9 Disorder of lipoprotein metabolism, unspecified; R73.03 Prediabetes; F41.1 Generalized anxiety disorder; M40.10 Other secondary kyphosis, site unspecified; M53.3 Sacrococcygeal disorders, not elsewhere classified; H61.21 Impacted cerumen, right ear; F17.200 Nicotine dependence, unspecified, uncomplicated; Z71.6 Tobacco abuse counseling | CPT/HCPCS: 96127; 99212 ==

== ENCOUNTER 2025-04-10 06:32 | Outpatient (REF) | payer MEDICARE, SELFPAY ==
[2025-04-10 11:29] LABS: MANUAL DIFF FLAG NO
[2025-04-10 11:35] LABS: Hematocrit 39.9 % (37.0-47.0); Hemoglobin 13.1 g/dl (12.0-16.0); Imm Gran Abs Auto 0.02 X10*3/uL (0.00-0.03); Imm Gran Pct Auto 0.3 % (0.0-0.4); Lymphocytes Absolute Auto 1.8 X10*3/uL (1.2-4.9); Mean Corpuscular HGB Conc 32.8 g/dl (31.0-35.0); Mean Corpuscular Hemoglobin 29.5 pg (27.0-33.0); Mean Corpuscular Volume 89.9 fL (80.0-98.0); NRBC Abs Auto 0.000 X10*3/uL (0.0-0.012); NRBC Pct Auto 0.0 /100WBC (0.0-0.2); Platelet Count 260 X10*3/uL (160-400); Red Blood Count 4.44 X10*6/uL (4.20-5.50); White Blood Count 6.2 X10*3/uL (4.8-10.8)
[2025-04-10 11:44] LABS: Hemoglobin A1C 149.3626 umol/L; Total Hemoglobin (HGBA1C) 3485.3675 umol/L
[2025-04-10 11:49] LABS: Alanine Aminotransferase 19 U/L (0-31); Albumin Level 4.6 g/dL (3.5-5.0); Alkaline Phosphatase 61 U/L (39-117); Anion Gap 14 (12-20); Aspartate Amino Transferase 25 U/L (5-31); Blood Urea Nitrogen 18 mg/dL (9-16); Calcium 9.5 mg/dL (8.4-10.2); Carbon Dioxide 26 mmol/L (22-29); Chloride 104 mmol/L (96-108); Cholesterol 262 mg/dL (<200); Estimated Glomerular Filt Rate > 60; HDL Cholesterol 78 mg/dL (>40); Potassium 4.1 mmol/L (3.3-5.1); Sodium 140 mmol/L (135-145); Total Protein 6.8 g/dL (6.5-8.0); Triglycerides 104 mg/dL (<150)
[2025-04-10 12:08] LABS: Vitamin B12 851 pg/mL (200-900)
[2025-04-14 17:28] LABS: Vitamin D 25-OH, D2 <4 ng/mL; Vitamin D 25-OH, D3 38 ng/mL; Vitamin D 25-OH, Total 38 ng/mL (30-100)
== END 2025-04-10 06:33 | disposition home or self-care (01) ==
LOC: HO.HMGCLDS 06:32
PROVIDERS: PCP Internal Medicine; Visit Provider Internal Medicine
DX: M81.0 Age-related osteoporosis without current pathological fracture (principal); E78.9 Disorder of lipoprotein metabolism, unspecified; K64.4 Residual hemorrhoidal skin tags; M40.10 Other secondary kyphosis, site unspecified; M53.3 Sacrococcygeal disorders, not elsewhere classified; F41.1 Generalized anxiety disorder; F17.200 Nicotine dependence, unspecified, uncomplicated; R73.03 Prediabetes; R94.4 Abnormal results of kidney function studies
CPT/HCPCS: 36415; 80053; 80061; 82306; 82607; 83036; 84443; 85025

== ENCOUNTER 2025-04-15 07:53 | Outpatient (AMB) | payer MEDICARE, SELFPAY ==
[2025-04-15 07:57] VITALS: BP 136/76; PULSE 79; RESP 16; TEMP 36.5; O2SAT 97; BMI 18.5
--- NOTE | 2025-04-15 07:57 | MHC.OFFWIV ---
Intake Vital Signs 04/15/25 07:57 Height 5 ft 5 in Weight 111 lb BMI 18.5 BP 136/76 Blood Pressure Location Rt brachial Position Sitting Respiration 16 Pulse 79 Pulse Source Pulse Oximeter Temp 97.7 F Temp Source Oral Pulse Oximetry (%) 97 Oxygen Delivery Method Room Air Intake Visit Reasons: EP-b/l ears block Intake Note: Pt is here today c/o bilateral ear blocked Patient Tobacco Use Status: Current everyday Tobacco user Allergies Penicillins Allergy (Unknown, Verified 04/09/25 08:31) Unknown Sulfa (Sulfonamide Antibiotics) Allergy (Unknown, Verified 04/09/25 08:31) Unknown Medication List - Last Reconciled 04/15/25 by Joanna Arevalo PA-C Bacillus coagulans (Digestive Advantage Probiotics-Prebiotic) cells PO Do you need a note to return to daycare/school/sports/work: No HPI HPI Comments History of Present Illness Details History of Present Illness - The patient is an 79-year-old female presenting with blocked ears due to cerumen impaction. - The patient reports a sensation of blocked ears and itchiness, which has been ongoing for quite a while. - She has been using Debrox drops as recommended by Dr. Carvalho last week, which helped in softening the wax. 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 Physical Exam General: Cooperative, healthy appearing, comfortable, no acute distress and well developed Orientation: Patient oriented x3 Limitations: No limitations Head: Normal to inspection Ears: Hearing grossly normal bilaterally, TM normal on left, TM blocked by cerumen in EAC, once cleared TM normal Nose: Normal External nose present Face and sinus: Normal facial exam Eyes: Appearance normal, both eyes and all related structures Neck: Normal visual inspection and Yes full ROM Respiratory: Normal respiratory effort and able to speak in complete sentences. Skin: No rashes or lesions noted Neuro: Patient oriented x3 Extremities: Normal to inspection [facility] Medical History Vaginitis Surgical History History of hysterectomy Family History Mother High cholesterol Father No problems noted. Social History Housing: House Patient Tobacco Use Status: Current everyday Tobacco user Cigarettes Per Day: 12 e-Cigarette/Vaping Use: Never Used service: No Current occupational status: retired Cognitive needs: No Hearing needs: No Vision needs: No Review of Systems Const All systems reviewed & are unremarkable except as noted in HPI and below Physical Exam Vital Signs: Last Vital Signs Temp 97.7 F 04/15/25 07:57 Pulse 79 04/15/25 07:57 Resp 16 04/15/25 07:57 BP 136/76 04/15/25 07:57 Pulse Ox 97 04/15/25 07:57 Oxygen Delivery Method Room Air 04/15/25 07:57 BMI result Body Mass Index 18.5 Office Procedures Cerumen Removal From which ear canal was the cerumen removed: right Removal: cerumen loop/spoon Notes: patient tolerated procedure well, no complications and ear canal clear [id number]-[id number] Wax Removal by Spoon/Curette Assessment & Plan Assessment & Plan (1) Impacted cerumen of right ear: Code(s): H61.21 - Impacted cerumen, right ear Plan: Plan - Right TM normal s/p cerumen removal. - Advise the patient to continue using cerumenolytic drops every other week as a preventative measure against cerumen impaction. - Recommend avoiding the use of Q-tips to prevent further impaction of earwax. Patient was informed and verbally consented to the use of an ambient scribe for clinic note documentation during this visit. Orders: Orders AMB Cerumen Removal Today H61.21 - Impacted cerumen, right ear Coding Level of Care Code Est Pt Level 3 (44250) Diagnoses Impacted cerumen of right ear H61.21 CPT Codes Office Procedure - CPT: 38516-Evd Wax Removal by Spoon/Curette ([id number])
--- OUTSIDE RECORDS SUMMARY | 2025-04-15 07:58 | XMS_ITS | Patient Health Record ---
Author Organization [facility] Address [address] [facility] [facility] [place] [address] Care Team Providers Care Editor Sound Name Role Phone Hesham Thomason MD Primary Care Provider Unavaila mikie Trish Real Unavailable [phone] Allergies Allergen (clinical drug ingredient) Drug/Non Drug [...] Problem Acquired hammer toe of right foot (1121405140251 105) Other hammer toe(s) (acquired), right foot (M20.41) Active confirmed Problem Acquired hammer toe of left foot (1494788681787 103) Other hammer toe(s) (acquired), left foot (M20.42) Active confirmed Plan Of Treatment Pending Test Test Name Order Date X ray : Foot, right 3V 09/08/2012 [id number] NAIL, 1-5 04/19/2014 [id number] NAIL, 1-5 07/26/2014 [id number] NAIL, -11/16/2015 [id number] NAIL, -09/30/2017 [id number] NAIL, -09/08/2012 Insurance Providers Payer Name Payer Address Payer Phone Subscriber Number Group Number Insured Name Patient Relationship to Insured Coverage Start Date Coverage End Date Medicare National Govt Sv[employer] [address] [place] [phone] [id number] Vy Acuña Self - patient is the insured [employer] [address] [place] [address] [phone] [id number] Vy Acuña Self - patient is the insured Medical (General) History Medical History History ICD Code psoriasis measles mumps chicken pox
== END 2025-04-15 08:20 | disposition home or self-care (01) ==
PROVIDERS: PCP Internal Medicine; Visit Provider Physician Assistant
DX: H61.21 Impacted cerumen, right ear (principal)

== ENCOUNTER → 2025-04-15 07:53 | Outpatient (BNVA) | payer MEDICARE, SELFPAY | PROVIDERS: PCP Internal Medicine; Visit Provider Physician Assistant | DX: H61.21 Impacted cerumen, right ear (principal) | CPT/HCPCS: 69210; 99212 ==

== ENCOUNTER 2025-04-22 06:21 | Outpatient (AMB) | payer MEDICARE, SELFPAY ==
--- OUTSIDE RECORDS SUMMARY | 2025-04-22 06:25 | XMS_ITS | Patient Health Record ---
Author [facility] Address [address] [facility] [place] [address] Care Team Providers Care Gas Plant Dispatcher Name Role Phone Hesham Thomason MD Primary Care Provider Unavaila mikie Trish Real Unavailable [phone] Allergies Allergen (clinical drug ingredient) Drug/Non Drug [...] Problem Acquired hammer toe of right foot ([id number] 105) Other hammer toe(s) (acquired), right foot (M20.41) Active confirmed Problem Acquired hammer toe of left foot (1472611236820 103) Other hammer toe(s) (acquired), left foot (M20.42) Active confirmed Plan Of Treatment Pending Test Test Name Order Date X ray : Foot, right 3V 09/08/2012 [id number] NAIL, 1-5 04/19/2014 [id number] NAIL, 1-5 07/26/2014 [id number] NAIL, -11/16/2015 [id number] NAIL, -09/30/2017 [id number] NAIL, -09/08/2012 Insurance Providers Payer Name Payer Address Payer Phone Subscriber Number Group Number Insured Name Patient Relationship to Insured Coverage Start Date Coverage End Date Medicare National Govt Svcs Inc [address] [place] [phone] [id number] Vy Acuña Self - patient is the insured [employer] [address] [place] [address] [phone] [id number] Vy Acuña Self - patient is the insured Medical (General) History Medical History History ICD Code psoriasis measles mumps chicken pox
--- NOTE | 2025-04-22 09:21 | MHC.PC.OV ---
Intake Visit Reasons: 2 week tv visit Allergies Penicillins Allergy (Unknown, Verified 04/09/25 08:31) Unknown Sulfa (Sulfonamide Antibiotics) Allergy (Unknown, Verified 04/09/25 08:31) Unknown Medication List - Last Reconciled 04/22/25 by Cassandra Carvalho MD Bacillus coagulans (Digestive Advantage Probiotics-Prebiotic) cells PO Tobacco use date assessed: 12/02/24 Dental Screening Dental Screen Date: 09/18/24 HPI 2 week tv visit HPI Details Chief Complaint The patient presents with persistent leg pain and concerns about high cholesterol. History of Present Illness The patient is an 79-year-old female presenting with follow-up for leg pain, high cholesterol, and vaginal itching. Leg Pain: - Pain located in the hamstring area causing discomfort in the tailbone. - Described as improving gradually. with PT Vaginal Itching: - Described as intermittent. - Correlated with dietary intake, particularly sweets. - Patient notes improvement with dietary control. Hypercholesterolemia: - Historical context: Previously diagnosed with high cholesterol. - Current LDL level is 164 mg/dL, previously 162 mg/dL. - Patient is attempting dietary control to manage cholesterol levels. Borderline Diabetes: - HbA1c: 6.1, indicating potential prediabetes. - Symptoms include occasional vaginal itching related to sugar intake. Medical History: - Chronic hypercholesterolemia. - Borderline diabetes as indicated by HbA1c level. Diagnostic Results: - Labs: - Thyroid test: Normal. - Vitamin D level: Normal. - Vitamin B12 level: Normal. - LDL: 164 mg/dL. - HbA1c: 6.1. Problem List - Chronic Leg Pain - Hypercholesterolemia - Vaginal Itching - Borderline Diabetes Patient Instructions - Avoid high-fat foods. - Limit sugar intake, especially pies and cheesecake. - Increase fruit and vegetable consumption. - Repeat labs in four months to monitor cholesterol and blood sugar levels. f/u 4 M after Labs fasting Review of Systems - General: No fever no chills - Neurological: No headaches no dizziness - Ear nose throat: No sore throat no hearing difficulty no ear pain - Cardiovascular: No syncope, no chest pain, no palpitations - Gastrointestinal: No nausea vomiting or diarrhea - Endocrine: No polyuria polydipsia no heat intolerance - Genitourinary: No dysuria , no blood in urine [facility] Medical History Vaginitis Surgical History History of hysterectomy Family History Mother High cholesterol Father No problems noted. Social History Housing: House Patient Tobacco Use Status: Current everyday Tobacco user Cigarettes Per Day: 12 e-Cigarette/Vaping Use: Never Used service: No Current occupational status: retired Cognitive needs: No Hearing needs: No Vision needs: No Questionnaire Thrive Questionnaire Date Thrive assessed: 01/10/22 SABINA-7 AMB Questionnaire SABINA-7 Date SABINA - 7 assessed: 09/18/24 Source: Developed by Drs. Scotty Machado, Whitley Hawkins, Antelmo Hoffman and colleagues, with an educational lolly from [employer]. Physical exam (Primary Care) Tobacco/Smoking Status: Tobacco use Status Tobacco use date assessed 12/02/24 12/02/24 08:36 Patient Tobacco Use Status Current everyday Tobacco 04/15/25 08:02 e-Cigarette/Vaping Use Never Used 12/02/24 08:36 Thrive Assessment: Date of Thrive Assessment Date Thrive assessed 01/10/22 12/02/24 08:36 Telehealth Telehealth Telehealth Platform: [facility] Location of provider rendering services: practice address Location of patient: address on file Patient Identification confirmed using: Name, : Yes Telehealth method: voice only Patient verbally consented to treatment: Yes Patient verbally consented to billing insurance company: Yes Patient informed of any privacy concerns related to visit: Yes Minutes spent on Phone/Video with Pt.: 13 Coding Level of Care Code Tele Est Pt Level 3 (06908) Diagnoses Lipid disorder E78.9 Pre-diabetes R73.03 Coccygodynia M53.3 Assessment & Plan Assessment & Plan (1) Lipid disorder: Code(s): E78.9 - Disorder of lipoprotein metabolism, unspecified Category: Medical (2) Pre-diabetes: Code(s): R73.03 - Prediabetes Category: Medical (3) Coccygodynia: Code(s): M53.3 - Sacrococcygeal disorders, not elsewhere classified Category: Medical Plan Chief Complaint The patient presents with persistent leg pain and concerns about high cholesterol. History of Present Illness The patient is an 79-year-old female presenting with follow-up for leg pain, high cholesterol, and vaginal itching. Leg Pain: - Pain located in the hamstring area causing discomfort in the tailbone. - Described as improving gradually. with PT Vaginal Itching: - Described as intermittent. - Correlated with dietary intake, particularly sweets. - Patient notes improvement with dietary control. Hypercholesterolemia: - Historical context: Previously diagnosed with high cholesterol. - Current LDL level is 164 mg/dL, previously 162 mg/dL. - Patient is attempting dietary control to manage cholesterol levels. Borderline Diabetes: - HbA1c: 6.1, indicating potential prediabetes. - Symptoms include occasional vaginal itching related to sugar intake. Medical History: - Chronic hypercholesterolemia. - Borderline diabetes as indicated by HbA1c level. Diagnostic Results: - Labs: - Thyroid test: Normal. - Vitamin D level: Normal. - Vitamin B12 level: Normal. - LDL: 164 mg/dL. - HbA1c: 6.1. Problem List - Chronic Leg Pain - Hypercholesterolemia - Vaginal Itching - Borderline Diabetes Patient Instructions - Avoid high-fat foods. - Limit sugar intake, especially pies and cheesecake. - Increase fruit and vegetable consumption. - Repeat labs in four months to monitor cholesterol and blood sugar levels. f/u 4 M after Labs fasting Orders: Orders Hemoglobin A1c 3 Months E78.9 - Disorder of lipoprotein metabolism, unspecified, M81.0 - Age-related osteoporosis without current pathological fracture, R73.03 - Prediabetes Comprehensive [place]. Panel Fast 3 Months E78.9 - Disorder of lipoprotein metabolism, unspecified, M81.0 - Age-related osteoporosis without current pathological fracture, R73.03 - Prediabetes Lipid Panel 3 Months E78.9 - Disorder of lipoprotein metabolism, unspecified, M81.0 - Age-related osteoporosis without current pathological fracture, R73.03 - Prediabetes
== END 2025-04-22 11:42 | disposition home or self-care (01) ==
LOC: HO.HMCC 06:22
PROVIDERS: PCP Internal Medicine; Visit Provider Internal Medicine
DX: E78.9 Disorder of lipoprotein metabolism, unspecified (principal); R73.03 Prediabetes; M53.3 Sacrococcygeal disorders, not elsewhere classified

== ENCOUNTER 2025-05-05 08:12 | Outpatient (AMB) | payer MEDICARE, SELFPAY ==
[2025-05-05 08:28] VITALS: BP 122/76; PULSE 79; TEMP 36.8; O2SAT 98; BMI 18.3
--- NOTE | 2025-05-05 08:28 | AM.OFFWIN_ITS ---
Intake Vital Signs 05/05/25 08:28 Height 5 ft 5 in Weight 110 lb BMI 18.3 BP 122/76 Blood Pressure Location Lt brachial Position Sitting Pulse 79 Pulse Source Pulse Oximeter Temp 98.3 F Temp Source Oral Pulse Oximetry (%) 98 Oxygen Delivery Method Room Air Intake Visit Reasons: EP-sinus issues, dizziness Intake Note: pt presents with sinus congestions, lightheaded and dizzy Patient Tobacco Use Status: Current everyday Tobacco user Allergies Penicillins Allergy (Unknown, Verified 05/05/25 08:36) Unknown Sulfa (Sulfonamide Antibiotics) Allergy (Unknown, Verified 04/09/25 08:31) Unknown Do you need a note to return to daycare/school/sports/work: No HPI HPI Comments History of Present Illness Details History of Present Illness - The patient is an 79-year-old female p resenting with symptoms of sinusitis and dizziness. - Reports of lightheadedness and unstead iness, with intermittent symptoms. - Describes head congestion and sinus pr essure without pain. - Symptoms peaked recently, with a histo ry of similar fall occurrences. - Utilizes Mucinex and saline nasal spra y for symptom relief. - Allergic to penicillin and prone to ye ast infections with antibiotics. - She denies fever, chills, chest pain, SOB, abd pain, n/v/d. - Had her ears flushed last week. Physical Exam General: Cooperative, healthy appearing, comfortable, no acute distress and well developed Head: Normal to inspection Ears: Hearing grossly normal bilaterally. No tragus or mastoid tenderness noted. Auditory canals clear bilaterally. TM's normal, not bulging. No fluid noted. Nose: Normal external nose present. Moist mucosa. Turbinates normal bilaterally, not boggy. Face and sinus: Tenderness to palpation of the frontal and maxillary sinuses bilaterally. Neck: Normal visual inspection and Yes full ROM. No lymphadenopathy noted. Respiratory: Normal respiratory effort and able to speak in complete sentences. Clear to auscultation bilaterally Cardiovascular: Regular rate and rhythm. Normal S1 and S2 GI: Normal to inspection. Soft to palpation and nontender, nondistended. No guarding noted. Skin: No rashes or lesions noted [facility] Medical History Vaginitis Surgical History History of hysterectomy Family History Mother High cholesterol Father No problems noted. Social History Housing: House Patient Tobacco Use Status: Current everyday Tobacco user Cigarettes Per Day: 12 e-Cigarette/Vaping Use: Never Used service: No Current occupational status: retired Cognitive needs: No Hearing needs: No Vision needs: No Physical Exam Vital Signs: Last Vital Signs Temp 98.3 F 05/05/25 08:28 Pulse 79 05/05/25 08:28 BP 122/76 05/05/25 08:28 Pulse Ox 98 05/05/25 08:28 Oxygen Delivery Method Room Air 05/05/25 08:28 BMI result Body Mass Index 18.3 Assessment & Plan Assessment & Plan (1) Sinusitis: Code(s): J32.9 - Chronic sinusitis, unspecified Qualifiers: Sinusitis location: frontal Chronicity: acute Recurrence: non- recurrent Qualified Code(s): J01.10 - Acute frontal sinusitis, unspecified Plan Most likely sinusitis vs URI vs viral illness plan - tylenol or motrin as needed - continue with saline spray - z-melba as directed - zyrtec D daily - follow up with PCP Medications: New azithromycin For 250 mg dose pack: take 500 mg today (day 1), then 250 mg for 4 days (days 2-5) PO 6 tabs 0RF cetirizine-pseudoephedrine 5-120 mg ER 1 tab PO BID 14 tabs 0RF 7 days fluconazole may repeat second dose 72 hrs after first dose if symptoms persist 150 mg PO Q3D 2 tabs 0RF Coding Level of Care Code Est Pt Level 3 (42744) Diagnoses Acute non-recurrent frontal sinusitis J01.10 Sinusitis location: frontal Chronicity: acute Recurrence: non-recurrent
--- OUTSIDE RECORDS SUMMARY | 2025-05-05 09:15 | XMS_ITS | Patient Health Record ---
Author Organization [facility] Address [address] [facility] [place] [address] Care Team Providers Care Buttoner Name Role Phone Hesham Thomason MD Primary Care Provider Unavaila mikie Trish Real Unavailable [phone] Allergies Allergen (clinical drug ingredient) Drug/Non Drug [...] Problem Acquired hammer toe of right foot (0790570224999 105) Other hammer toe(s) (acquired), right foot (M20.41) Active confirmed Problem Acquired hammer toe of left foot ([id number] 103) Other hammer toe(s) (acquired), left foot (M20.42) Active confirmed Plan Of Treatment Pending Test Test Name Order Date X ray : Foot, right 3V 09/08/2012 [id number] NAIL, 1-5 04/19/2014 [id number] NAIL, 1-5 07/26/2014 [id number] NAIL, -11/16/2015 [id number] NAIL, -09/30/2017 [id number] NAIL, -09/08/2012 Insurance Providers Payer Name Payer Address Payer Phone Subscriber Number Group Number Insured Name Patient Relationship to Insured Coverage Start Date Coverage End Date Medicare National Govt Svcs Inc [address] [place] [phone] [id number] Vy Acuña Self - patient is the insured [employer] [address] [place] [address] [phone] [id number] Vy Acuña Self - patient is the insured Medical (General) History Medical History History ICD Code psoriasis measles mumps chicken pox
== END 2025-05-05 09:22 | disposition home or self-care (01) ==
PROVIDERS: PCP Internal Medicine; Visit Provider Physician Assistant Medical
DX: J01.10 Acute frontal sinusitis, unspecified (principal)

== ENCOUNTER → 2025-05-05 08:12 | Outpatient (BNVA) | payer MEDICARE, SELFPAY | PROVIDERS: PCP Internal Medicine; Visit Provider Physician Assistant Medical | DX: J01.10 Acute frontal sinusitis, unspecified (principal) | CPT/HCPCS: 99212 ==

== ENCOUNTER 2025-05-25 09:00 | Outpatient (RCR) | payer MEDICARE, SELFPAY ==
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
--- NOTE | 2025-05-25 10:21 | MHC.PT.DC ---
[facility] Office [place] Office [place] Office [address] Andrew Hough [address] [phone] F: [phone] F: [phone] F: [phone] F: [phone] Physical Therapy Discharge Report Diagnosis: This is an 79 year old female presenting to skilled PT with a script for coccygodynia. Date of Surgery: Date of Evaluation: 03/09/25 Date of Discharge: 05/25/25 Treatments to Date: 11 Cancellations to Date: 0 No Shows to Date: 0 Discharge Status: Achieved Goals Improved Function Independent with HEP Discharge Summary: Patient has come to 11 sessions of PT. She is I in her program, has improved her back pain and returned to normal daily routine. She does have some lingering coccyx pain we as well as reporting some rectal issues. I did refer her to pelvic floor as an option for further pain relief and provided education and pamphlet. She is motivated to continue on her own and does not feel like skilled PT is indicated any longer. DC to [facility]. Electronically signed by: Nidia Garibay PT Please sign and return to therapist. Thank you for your referral.
== END 2025-05-25 10:22 | disposition home or self-care (01) ==
LOC: HO.PTCHIC 09:00
PROVIDERS: PCP Internal Medicine; Visit Provider Physician Assistant
DX: M53.3 Sacrococcygeal disorders, not elsewhere classified (principal)
CPT/HCPCS: 97110; 97162

== ENCOUNTER 2025-06-08 07:08 | Outpatient (AMB) | payer MEDICARE, SELFPAY ==
--- NOTE | 2025-06-08 07:10 | AM.OFFWIN_ITS ---
Intake Vital Signs 06/08/25 07:12 Height 5 ft 5 in Weight 108 lb BMI 18.0 BP 132/80 Blood Pressure Location Lt brachial Position Sitting Respiration 16 Pulse 88 Pulse Source Pulse Oximeter Temp 97.6 F Temp Source Oral Pulse Oximetry (%) 97 Oxygen Delivery Method Room Air Intake Visit Reasons: EP-rt ear pain Intake Note: Pt is here today c/o Rt ear pain Patient Tobacco Use Status: Current everyday Tobacco user Allergies Penicillins Allergy (Unknown, Verified 06/08/25 07:10) Unknown Sulfa (Sulfonamide Antibiotics) Allergy (Unknown, Verified 06/08/25 07:10) Unknown HPI HPI Comments History of Present Illness Details History - The patient is an 79-year-old female p resenting with impacted cerumen in the right ear. - The patient experienced occasional reymundo n in the right ear following earwax removal a couple of weeks ago. - The patient reports severe seasonal al lergies this year, with symptoms including lightheadedness and dental pain, partially relieved by Mucinex. - Occasional sneezing and fatigue are no avinash, with no frequent sneezing reported. - The patient has experienced hair loss since a dietary change years ago, with no improvement from dermatological consultations or treatments. Physical Exam General: Cooperative, healthy appearing, comfortable, no acute distress and well developed Orientation: Patient oriented x3 Limitations: No limitations Head: Normal to inspection Ears: External ears normal bilaterally, right EAC with cerumen, left EAC normal Face and sinus: Normal facial exam Neck: Normal visual inspection and Yes full ROM Respiratory: Normal respiratory effort and able to speak in complete sentences. Skin: No rashes or lesions noted Neuro: Patient oriented x3 Extremities: normal to inspection Review of Systems - Ears: Reports occasional pain in the r ight ear, denies itching. - Respiratory: Denies frequent sneezing, reports occasional sneezing. - General: Reports fatigue. All systems reviewed and are unremarkable except as noted in HPI [facility] Medical History Vaginitis Surgical History History of hysterectomy Family History Mother High cholesterol Father No problems noted. Social History Housing: House Patient Tobacco Use Status: Current everyday Tobacco user Cigarettes Per Day: 12 e-Cigarette/Vaping Use: Never Used service: No Current occupational status: retired Cognitive needs: No Hearing needs: No Vision needs: No Physical Exam Vital Signs: Last Vital Signs Temp 97.6 F 06/08/25 07:12 Pulse 88 06/08/25 07:12 Resp 16 06/08/25 07:12 BP 132/80 06/08/25 07:12 Pulse Ox 97 06/08/25 07:12 Oxygen Delivery Method Room Air 06/08/25 07:12 BMI result Body Mass Index 18.0 Office Procedures Cerumen Removal Details: some wax removed, not fully as EAC getting irritated From which ear canal was the cerumen removed: right Removal: otoscope w/curette Notes: patient tolerated procedure well and no complications 45317-[id number] Wax Removal by Spoon/Curette Assessment & Plan Assessment & Plan (1) Impacted cerumen of right ear: Code(s): H61.21 - Impacted cerumen, right ear Plan: Plan - Use Debrox drops daily for a week to address the remainder of cerumen in the right ear, then as needed for maintenance. - Monitor seasonal allergy symptoms and seek further evaluation if symptoms persist or worsen. Patient was informed and verbally consented to the use of an ambient scribe for clinic note documentation during this visit. Orders: Orders AMB Cerumen Removal Today H61.23 - Impacted cerumen, bilateral Coding Level of Care Code Est Pt Level 3 (72958) Diagnoses Impacted cerumen of right ear H61.21 CPT Codes Office Procedure - CPT: 03060-Kzy Wax Removal by Spoon/Curette ([id number])
--- OUTSIDE RECORDS SUMMARY | 2025-06-08 07:11 | XMS_ITS | Patient Health Record ---
[facility] Address [address] [place] [address] Care Team Providers Care Emergency Medical Technician Name Role Phone Hesham Thomason MD Primary Care Provider Unavaila mikie Trish Real Unavailable [phone] Allergies Allergen (clinical drug ingredient) Drug/Non Drug [...] Problem Acquired hammer toe of right foot ([id number] 105) Other hammer toe(s) (acquired), right foot (M20.41) Active confirmed Problem Acquired hammer toe of left foot ([id number] 103) Other hammer toe(s) (acquired), left foot (M20.42) Active confirmed Plan Of Treatment Pending Test Test Name Order Date X ray : Foot, right 3V 09/08/2012 [id number] NAIL, 1-5 04/19/2014 [id number] NAIL, 1-5 07/26/2014 [id number] NAIL, -11/16/2015 [id number] NAIL, -09/30/2017 [id number] NAIL, -09/08/2012 Insurance Providers Payer Name Payer Address Payer Phone Subscriber Number Group Number Insured Name Patient Relationship to Insured Coverage Start Date Coverage End Date Medicare National [employer] [address] [place] [phone] [id number] Vy Acuña Self - patient is the insured [employer] [address] [place] [address] [phone] [id number] Vy Acuña Self - patient is the insured Medical (General) History Medical History History ICD Code psoriasis measles mumps chicken pox
[2025-06-08 07:12] VITALS: BP 132/80; PULSE 88; RESP 16; TEMP 36.4; O2SAT 97; BMI 18.0
== END 2025-06-08 08:16 | disposition home or self-care (01) ==
PROVIDERS: PCP Internal Medicine; Visit Provider Physician Assistant
DX: H61.21 Impacted cerumen, right ear (principal)

== ENCOUNTER → 2025-06-08 07:08 | Outpatient (BNVA) | payer MEDICARE, SELFPAY | PROVIDERS: PCP Internal Medicine; Visit Provider Physician Assistant | DX: H61.21 Impacted cerumen, right ear (principal) | CPT/HCPCS: 69210; 99212 ==

== ENCOUNTER 2025-07-12 06:09 | Outpatient (REF) | payer OTHER, SELFPAY ==
--- OUTSIDE RECORDS SUMMARY | 2025-07-12 06:13 | XMS_ITS | Patient Health Record ---
[facility] Address [address] [place] [address] Care Team Providers Care Clinical Pharmacist Name Role Phone Hesham Thomason MD Primary Care Provider Unavaila mikie Trish Real Unavailable [phone] Allergies Allergen (clinical drug ingredient) Drug/Non Drug [...] Problem Acquired hammer toe of right foot ([id number] 105) Other hammer toe(s) (acquired), right foot (M20.41) Active confirmed Problem Acquired hammer toe of left foot ([id number] 103) Other hammer toe(s) (acquired), left foot (M20.42) Active confirmed Plan Of Treatment Pending Test Test Name Order Date X ray : Foot, right 3V 09/08/2012 [id number] NAIL, 1-5 04/19/2014 [id number] NAIL, 1-5 07/26/2014 [id number] NAIL, -11/16/2015 [id number] NAIL, -09/30/2017 [id number] NAIL, -09/08/2012 Insurance Providers Payer Name Payer Address Payer Phone Subscriber Number Group Number Insured Name Patient Relationship to Insured Coverage Start Date Coverage End Date Medicare National [employer] [address] [place] [phone] [id number] Vy Acuña Self - patient is the insured [employer] [address] [place] [address] [phone] [id number] Vy Acuña Self - patient is the insured Medical (General) History Medical History History ICD Code psoriasis measles mumps chicken pox
[2025-07-12 11:02] LABS: Alanine Aminotransferase 22 U/L (0-31); Albumin Level 4.6 g/dL (3.5-5.0); Alkaline Phosphatase 65 U/L (39-117); Anion Gap 14 (12-20); Aspartate Amino Transferase 30 U/L (5-31); Blood Urea Nitrogen 18 mg/dL (9-16); Calcium 9.6 mg/dL (8.4-10.2); Carbon Dioxide 25 mmol/L (22-29); Chloride 104 mmol/L (96-108); Cholesterol 275 mg/dL (<200); Estimated Glomerular Filt Rate 59; HDL Cholesterol 82 mg/dL (>40); Potassium 4.5 mmol/L (3.3-5.1); Sodium 138 mmol/L (135-145); Total Protein 6.9 g/dL (6.5-8.0); Triglycerides 117 mg/dL (<150)
== END 2025-07-12 06:10 | disposition home or self-care (01) ==
LOC: HO.HMGCLDS 06:09
PROVIDERS: PCP Internal Medicine; Visit Provider Internal Medicine
DX: M81.0 Age-related osteoporosis without current pathological fracture (principal); R73.03 Prediabetes; E78.9 Disorder of lipoprotein metabolism, unspecified
CPT/HCPCS: 36415; 80053; 80061; 83036

== ENCOUNTER 2025-08-11 07:58 | Outpatient (AMB) | payer OTHER, SELFPAY ==
--- OUTSIDE RECORDS SUMMARY | 2025-08-11 08:03 | XMS_ITS | Patient Health Record ---
[facility] Address [address] [place] [address] Care Team Providers Care Grid Molder Name Role Phone Hesham Thomason MD Primary Care Provider Unavaila mikie Trish Real Unavailable [phone] Allergies Allergen (clinical drug ingredient) Drug/Non Drug [...] Problem Acquired hammer toe of right foot ([id number] 105) Other hammer toe(s) (acquired), right foot (M20.41) Active confirmed Problem Acquired hammer toe of left foot ([id number] 103) Other hammer toe(s) (acquired), left foot (M20.42) Active confirmed Plan Of Treatment Pending Test Test Name Order Date X ray : Foot, right 3V 09/08/2012 [id number] NAIL, 1-5 04/19/2014 [id number] NAIL, 1-5 07/26/2014 [id number] NAIL, -11/16/2015 [id number] NAIL, -09/30/2017 [id number] NAIL, -09/08/2012 Insurance Providers Payer Name Payer Address Payer Phone Subscriber Number Group Number Insured Name Patient Relationship to Insured Coverage Start Date Coverage End Date Medicare National [employer] [address] [place] [phone] [id number] Vy Acuña Self - patient is the insured [employer] [address] [place] [address] [phone] [id number] Vy Acuña Self - patient is the insured Medical (General) History Medical History History ICD Code psoriasis measles mumps chicken pox
[2025-08-11 08:05] VITALS: BP 132/80; PULSE 86; O2SAT 93; BMI 17.6
--- NOTE | 2025-08-11 08:05 | A.OFFPC_ITS ---
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 Required: No Accompanied by: Self / Same As Patient Allergies Penicillins Allergy (Unknown, Verified 08/11/25 08:05) Unknown Sulfa (Sulfonamide Antibiotics) Allergy (Unknown, Verified 08/11/25 08:05) Unknown Medication List - Last Reconciled 08/11/25 by Cassandra Carvalho MD No Known Home Meds Tobacco use date assessed: 12/02/24 Fall risk assessment: No Falls in past year Last assessed Fall Risk: 08/11/25 Dental Screening Dental Screen Date: 09/18/24 HPI HPI Comments History of Present Illness Details History of Present Illness The patient is an 80 year old female presenting with follow-up on several chronic issues. Coccydynia: - The patient reports chronic lower back pain localized to the coccyx area, which she describes as a burning sensation. - The pain began after a visit to a chir opractor and has been ongoing for approximately two years. - The discomfort primarily occurs when s he is sitting, though it is not constant, and she experiences good and bad days. - She previously underwent physical therapy attendant apy, which improved her general back pain, but the burning in her tailbone persists. - She uses a topical cream that provides some soothing effect. Otalgia: - The patient has been experiencing pain in her ear since undergoing an ear cleaning procedure in May. - She recalls feeling a pinch during t he procedure and has had intermittent pain since. - She denies using Q-tips in her ears. Alopecia: - The patient is concerned about hair lo ss, which she states began after a diet change and a 10-pound weight loss. - She has tried various shampoos and con ditioners, and she takes vitamins. - She wonders if the hair loss is hormon al. Prediabetes: - The patient has borderline diabetes. - A recent lab draw in June showed h er HbA1c had risen to 6.3. - She was advised that an A1c of 6.5 or higher constitutes a diagnosis of diabetes. Hypercholesterolemia: - The patient has high cholesterol, whic h remains very high based on recent labs. - There is a family history of high chol esterol, as her mother had problems with it. - She declines to take any medication fo r her cholesterol. Underweight: - The patient's BMI is 17.6, categorizin g her as underweight. Medical History: - Prediabetes - Hypercholesterolemia - Coccydynia secondary to chiropractor v isit - Underweight with a BMI of 17.6 Social History: - The patient reports being averse to [facility] medications, stating they give her other problems. - She believes she is following a proper diet and is not overweight. - She reported a prior diet change where she lost 10 pounds. Family History: - Mother had high cholesterol. [facility] Medical History Vaginitis Surgical History History of hysterectomy Family History Mother High cholesterol Father No problems noted. Social History Housing: House Patient Tobacco Use Status: Current everyday Tobacco user Cigarettes Per Day: 12 e-Cigarette/Vaping Use: Never Used service: No Current occupational status: retired Cognitive needs: No Hearing needs: No Vision needs: No Questionnaire Thrive Questionnaire Date Thrive assessed: 08/11/25 I am a: Patient What is your living situation today?: I have a steady place to live Within the past 12 months, did the food you bought not last and you didn't have the money to get more?: Never true Within the past 12 months, did you worry whether your food would run out before you got money to buy more?: Never true Do you have trouble paying for medicines?: No Do you have trouble getting transportation to medical appointments?: No Do you have trouble paying your heating and electricity bill?: No Do you have trouble taking care of your child, family member or friend?: No Do you have trouble with day-to-day activities such as bathing, preparing meals, shopping, managing finances, etc.?: No Are you currently unemployed and looking for a job?: No Are you interested in more education?: No Please select the resources that you would like help with: None Currently or been in a relationship where the following occur: No concerns reported THRIVE Score: 0 AUDIT C Alcohol Use Questionnaire (AUDIT-C) 1. How often do you have a drink containing alcohol?: Never 3. How often do you have six or more drinks on one occasion?: Never Total Score: 0 Score Reviewed/Action Taken: Yes SABINA-7 AMB Questionnaire SABINA-7 Date SABINA - 7 assessed: 09/18/24 Source: Developed by Drs. Scotty Machado, Whitley Hawkins, Antelmo Hoffman and colleagues, with an educational lolly from [employer]. Review of Systems Narrative Review of Systems . - General: No fever no chills - Neurological: No headaches no dizziness - Ear nose throat: No sore throat no hearing difficulty no ear pain - Cardiovascular: No syncope, no chest pain, no palpitations - Gastrointestinal: No nausea vomiting or diarrhea - Endocrine: No polyuria polydipsia no heat intolerance - Genitourinary: No dysuria , no blood in urine Physical exam (Primary Care) Vital Signs: Last Vital Signs Pulse 86 08/11/25 08:05 BP 132/80 08/11/25 08:05 Pulse Ox 93 08/11/25 08:05 Oxygen Delivery Method Room Air 08/11/25 08:05 BMI result Body Mass Index 17.6 Tobacco/Smoking Status: Tobacco use Status Tobacco use date assessed 12/02/24 08/11/25 08:10 Patient Tobacco Use Status Current everyday Tobacco 08/11/25 08:10 e-Cigarette/Vaping Use Never Used 08/11/25 08:10 Thrive Assessment: Date of Thrive Assessment Date Thrive assessed 08/11/25 08/11/25 08:10 Currently or been in a relationship where the following occur: No concerns reported Narrative Physical Exam General: No acute distress HEENT: No acute findings, ear exam WNL, no pain over TMJ Neck: Supple Respiratory system: Able to talk in full sentences, no audible wheeze Cardiovascular: S1-S2 regular in rate and rhythm Gastrointestinal: No pain Back, pain located over coccyx area with pressure Extremities: No new findings SCANNER OPERATOR: Alert awake oriented x3 motor intact Skin: Normal turgor Coding Level of Care Code Est Pt Level 4 (87146) Add On Problem Visit Only Diagnoses Coccygodynia M53.3 Lipid disorder E78.9 Pre-diabetes R73.03 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; 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 Hair loss L65.9 Underweight (BMI < 18.5) R63.6; Z68.1 Assessment & Plan Assessment & Plan (1) Coccygodynia: Code(s): M53.3 - Sacrococcygeal disorders, not elsewhere classified Category: Medical (2) Lipid disorder: Code(s): E78.9 - Disorder of lipoprotein metabolism, unspecified Category: Medical (3) Pre-diabetes: Code(s): R73.03 - Prediabetes Category: Medical (4) Kyphosis due to osteoporosis: Code(s): M81.0 - Age-related osteoporosis without current pathological fracture; M40.10 - Other secondary kyphosis, site unspecified Category: Medical (5) Hair loss: Code(s): L65.9 - Nonscarring hair loss, unspecified Category: Medical (6) Underweight (BMI < 18.5): Code(s): R63.6 - Underweight; Z68.1 - Body mass index [BMI] 19.9 or less, adult Category: Medical Plan Problem List - Coccydynia - Otalgia - Alopecia - Prediabetes - Hypercholesterolemia - Underweight - Kyphosis Plan - Coccydynia: A referral will be placed for the patient to see a pain specialist at [facility] for further evaluation of her chronic tailbone pain. The patient was provided with the contact number to follow up if she does not receive a call to schedule an appointment. - Hypercholesterolemia: The patient declined to start medication at this time. The discussion will be revisited at a future appointment if she is ready. No new labs will be ordered for cholesterol at this visit. - Prediabetes: The patient was counseled on her A1c level of 6.3. Monitoring will continue, and a fingerstick glucose check will be performed at her next visit. - Otalgia: The patient was reassured that her ear exam was normal. The pain is likely referred from the temporomandibular joint, possibly due to arthritis, and is not an issue with the ear itself. - Alopecia: Reassured the patient regarding her hair volume. - Follow-up: The patient will return to the clinic in four months for a follow- up appointment to monitor her blood sugar. Orders: Referrals Pain Management Referral M53.3 - Sacrococcygeal disorders, not elsewhere classified
== END 2025-08-11 09:07 | disposition home or self-care (01) ==
PROVIDERS: PCP Internal Medicine; Visit Provider Internal Medicine
DX: M53.3 Sacrococcygeal disorders, not elsewhere classified (principal); E78.9 Disorder of lipoprotein metabolism, unspecified; R73.03 Prediabetes; M81.0 Age-related osteoporosis without current pathological fracture; M40.10 Other secondary kyphosis, site unspecified; L65.9 Nonscarring hair loss, unspecified; R63.6 Underweight; Z68.1 Body mass index [BMI] 19.9 or less, adult

== ENCOUNTER → 2025-08-11 07:58 | Outpatient (BNVA) | payer OTHER, SELFPAY | PROVIDERS: PCP Internal Medicine; Visit Provider Internal Medicine | DX: M53.3 Sacrococcygeal disorders, not elsewhere classified (principal); E78.9 Disorder of lipoprotein metabolism, unspecified; R73.03 Prediabetes; M81.0 Age-related osteoporosis without current pathological fracture; M40.10 Other secondary kyphosis, site unspecified; L65.9 Nonscarring hair loss, unspecified; R63.6 Underweight; Z68.1 Body mass index [BMI] 19.9 or less, adult; G89.29 Other chronic pain; H92.09 Otalgia, unspecified ear; L63.9 Alopecia areata, unspecified; E78.00 Pure hypercholesterolemia, unspecified | CPT/HCPCS: 99212 ==